=== PATIENT | female | born 1945 | race Caucasian/White ===

== ENCOUNTER 2022-01-28 09:00 | Outpatient (RCR) | payer OTHER, SELFPAY | END 2022-01-28 10:14 | disposition home or self-care (01) | LOC: HO.PT 09:00 | PROVIDERS: PCP Internal Medicine; Visit Provider Obstetrics & Gynecology | DX: R32 Unspecified urinary incontinence (principal) | CPT/HCPCS: 97110; 97112; 97162; 97530 ==

== ENCOUNTER 2025-04-15 15:06 | Outpatient (AMB) | payer OTHER, SELFPAY ==
--- NOTE | 2025-04-15 15:09 | MHC.OFFVIS ---
Intake Visit Reasons: dysuria/ urinary incontinence Intake Note: Patient is present for DYSURIA/URINARY INCONTINENCE Urology Medication:NONE Antibiotic Allergy:NONE Blood Thinner:NONE Motion Picture Equipment Supervisor Required: No Allergies No Known Allergies Allergy (Verified 04/15/25 15:10) Results AMB Urinalysis, Automated UA Leukoctes 0 Jessie/uL Last Edit by RAMÍREZ Singh on 04/15/25 15:39 UA Nitrite Negative Last Edit by Keke Hoang [facility] on 04/15/25 15:39 UA Urobilinogen 17 mg/dL Last Edit by Keke Hoang [facility] on 04/15/25 15:39 UA Protein 0.3 mg/dL Last Edit by Keke Hoang [facility] on 04/15/25 15:39 UA pH 5.5 Last Edit by Keke Hoang [facility] on 04/15/25 15:39 UA Blood 0 Grupo/uL Last Edit by Keke Hoang [facility] on 04/15/25 15:39 UA Specific Trenary 1.030 Last Edit by Keke Hoang [facility] on 04/15/25 15:39 UA Ketone Positive Last Edit by Keke Hoang [facility] on 04/15/25 15:39 UA Bilirubin 35 mg/dL Last Edit by Keke Hoang [facility] on 04/15/25 15:39 UA Glucose 0 mg/dL Last Edit by eKke Hoang [facility] on 04/15/25 15:39 Assessment & Plan Assessment & Plan (1) Mixed incontinence urge and stress: Code(s): N39.46 - Mixed incontinence Category: Medical (2) Urge incontinence: Code(s): N39.41 - Urge incontinence Category: Medical Orders: Orders AMB Urinalysis Automated Today Z13.9 - Encounter for screening, unspecified Coding Diagnoses Mixed incontinence urge and stress N39.46 Urge incontinence N39.41
== END 2025-04-15 15:53 | disposition home or self-care (01) ==
LOC: HO.HUSH 15:06
PROVIDERS: PCP Internal Medicine; Visit Provider Urology
DX: Z13.9 Encounter for screening, unspecified (principal)

== ENCOUNTER → 2025-04-15 15:06 | Outpatient (BNVA) | payer OTHER, SELFPAY | PROVIDERS: PCP Internal Medicine; Visit Provider Urology | DX: N39.46 Mixed incontinence (principal) | CPT/HCPCS: 81003 ==

== ENCOUNTER 2025-07-15 08:55 | Outpatient (AMB) | payer OTHER, SELFPAY ==
--- NOTE | 2025-07-15 09:04 | MHC.OFFVIS ---
Intake Visit Reasons: bulkamid consult Intake Note: Patient is present for bulkamid consult Urology Medication:NONE Antibiotic Allergy:NONE Blood Thinner:NONE PVR:13ml Egg Processor Required: No Allergies No Known Allergies Allergy (Verified 07/15/25 09:05) Medication List - Last Reconciled 07/15/25 by Julissa Rosa MD atorvastatin 10 mg PO DAILY estradiol 0.01%(0.1mg/gram) (Estrace) With fingertip use pea-sized amount and apply to urethra vaginally at bedtime daily; fluconazole mg PO mirabegron ER 25 mg PO DAILY 30 days ondansetron mg PO propranolol ER 60 mg PO DAILY sertraline 50 mg PO DAILY topiramate 25 mg PO BEDTIME HPI Comments Details: 07/15/25--Mari is a 80-year-old female who has been evaluated by Dr. Nieves and was started on combination VESIcare and Myrbetriq for overactive bladder symptoms. She is here for follow-up. Urinalysis negative. Bladder scan PVR 13 mL. Pelvic exam narrow introitus, no prolapse noted, small urethral caruncle and prolapse noted. Eyeball cystometrogram consistent with stress urinary incontinence leakage with Valsalva. Discussed Bulkamid urethral bulking for stress urinary incontinence/ISD. Patient has mixed urinary incontinence. Due to age will DC VESIcare and continue Myrbetriq 25 mg at bedtime. Of note the patient has a Medtronic InterStim which was placed in 2020 for fecal incontinence. She states it has not helped with her urinary symptoms. Review of Systems Const All systems reviewed & are unremarkable except as noted in HPI and below Reports no additional complaints Eyes Reports no additional complaints ENT Reports no additional complaints Card Reports no additional complaints Resp Reports no additional complaints GI Reports no additional complaints Reports as per HPI Musc Reports no additional complaints Skin/Breast Reports system reviewed and no additional complaints, except as documented Neuro Reports no additional complaints Psych Reports no additional complaints Endo Reports no additional complaints Jeff/Lymph Reports no additional complaints Aller/Immun Reports no additional complaints Office Procedures Bladder/Catheter Procedure Details: Eyeball cystometrogram-16 Algerian catheter inserted. 15 mL PVR. Total fill 240 mL, during filling 1st desire 100 mL, strong desire 100 and 80 mL. Total fill 240 mL. After Aiken catheter removed leakage noted with Valsalva. Patient voided 300 mL. [id number] of Bladder Procedure code (CPT) selection complete Office Meds nitrofurantoin monohydrate/macrocrystals 100 mg capsule Performing Provider: Julissa Rosa MD Performing Location: [facility] Administered by: China Otto RN on 07/15/25 10:27 Dose Route Admin Location Dispensed Lot Number Expiration Date NDC [employer] Worker 100 mg PO 1 cap Assessment & Plan Assessment & Plan (1) Mixed incontinence urge and stress: Code(s): N39.46 - Mixed incontinence Category: Medical (2) Urge incontinence: Code(s): N39.41 - Urge incontinence Category: Medical (3) OAB (overactive bladder): Code(s): N32.81 - Overactive bladder Category: Medical (4) CYNDI (stress urinary incontinence, female): Code(s): N39.3 - Stress incontinence (female) (male) Category: Medical Plan The patient has Medtronic InterStim pacemaker that was placed in 2020 for fecal incontinence. She states it has not helped her symptoms of urinary incontinence. Mixed incontinence with significant urge/frequency. was treated with trial maximum medication solifenacin plus Myrbetriq since age over [address] Nieves. Will continue Myrbetriq 25 mg qhs Pelvic exam-no prolapse, vaginal atrophy, urethral prolapse. Will start estrace cream. Eyeball cystometrogram today- c/w stress urinary incontinence. Leakage with Valsalva. Plan Bulkamid. Orders: Orders AMB Bladder/Catheter Procedure Today N39.41 - Urge incontinence, N39.46 - Mixed incontinence AMB Macrobid Today N39.41 - Urge incontinence, N39.46 - Mixed incontinence Medications: New estradiol 0.01%(0.1mg/gram) (Estrace) With fingertip use pea-sized amount and apply to urethra vaginally at bedtime daily; 42.5 grams 1RF Refilled mirabegron ER 25 mg PO DAILY 30 tabs 5RF 30 days N32.81 - Overactive bladder Discontinued solifenacin Discontinued Reason: Doctor's Order 10 mg PO DAILY 30 days 30 tabs 2RF N39.46 - Mixed incontinence Patient Instructions: The patient had an opportunity to ask questions regarding treatment plan. The patient expressed understanding and agreement with the above treatment plan. The patient is aware they should contact our office by phone for worsening of their current condition or the appearance of new symptoms. Compliance is encouraged with any medications and followup testing that is ordered. It is a privilege to be allowed the opportunity to participate in the urologic care of your patient. If you have any questions or concerns regarding treatment for the above conditions please do not hesitate to contact me. The office telephone contact is [phone]. This note is constructed in part using voice recognition software. While every effort has been made to ensure accuracy chronic manager errors may have been included. Yours sincerely, Julissa Rosa MD Coding Level of Care Code Est Pt Level 4 (70494) Complex EM visit Add On G2211 Diagnoses Mixed incontinence urge and stress N39.46 Urge incontinence N39.41 OAB (overactive bladder) N32.81 CYNDI (stress urinary incontinence, female) N39.3 CPT Codes Bladder/Catheter Procedure - CPT: 38449-Eysoxrgxmh of Bladder ([id number])
--- OUTSIDE RECORDS SUMMARY | 2025-07-15 09:07 | XMS_ITS ---
Author Name [facility] Organization Unknown Care Team Organization Name Specialty Phone Email Start Date End Da te [facility] 10/01/2022 4
--- OUTSIDE RECORDS SUMMARY | 2025-07-15 09:07 | XMS_ITS | Clinical Summary ---
Author Organization [facility] Address [address] [place] [address] Phone Care Team Providers Care Car Painter Name Role Phone Maya Fajardo MD Primary Care Provider [phone] Allergies Active Allergy Reactions Criticality Noted Date Comments Cephalexin Monohydrate Medium 06/15/2009 Keflex Other Reaction(s): Hives/Urticaria Clindamycin 11/25/2019 Rash diarrhea Prochlorperazine High 01/23/2006 Compazine Doesn't remember Tramadol Nausea And Vomiting 01/31/2018 Medications loperamide (IMODIUM) 2 mg capsule 12/29/2023 Active multivitamin (MULTIPLE VITAMINS ORAL) 1 tab qd Activ e nitroglycerin (NITROSTAT) 0.[address] ONE TABLET UNDER THE TONGUE NEEDED FOR CHEST PAIN, MAY REPEAT ONE TIME 25 tablet 03/22/2025 Active propranolol LA (INDERAL LA) 60 mg 24 hr capsule Take 1 capsule (60 mg total) by mouth 1 (one) time each day. 90 capsule 06/14/2025 Active topiramate (TOPAMAX) 25 mg tablet Take 1 tablet (25 mg total) by mouth at bedtime. 90 tablet 06/14/2025 Active atorvastatin (LIPITOR) 10 mg tablet Take 1 tablet (10 mg total) by mouth at bedtime. 90 tablet 06/14/2025 Active sertraline (ZOLOFT) 50 mg tablet Take 1 tablet (50 mg total) by mouth 1 (one) time each day in the morning. 90 tablet 06/14/2025 Active mirabegron (MYRBETRIQ) 25 mg 24 hr tablet Take 1 tablet (25 mg total) by mouth 1 (one) time each day. 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 Shingles 06/04/2008 Urinary incontinence 03/03/2007 B12 deficiency 03/03/2006 Depression 03/03/2006 Migraine 03/03/2006 Resolved Problems Problem Noted Date Diagnosed Date Resolved Date Other voice and resonance disorders 03/03/2006 04/11/2025 Overview (10/19/2024): Work up negative Encounters Date Type Department Care Team Description 05/13/2025 2:04 PM EDT - 05/13/2025 11:59 PM EDT [facility] [address] [place] [phone] Rib pain Discharge Disposition: Home or Self Care 05/13/2025 2:00 PM EDT Office Visit [facility] - [facility] [address] [place] [phone] Nasir Reyna, PHLEBOTOMY SUPERVISOR Rib pain (Primary Dx) from Last 3 Months Immunizations Name Administration Dates Next Due H1N1 Inj Preservative Free 12/15/2009 Influenza trivalent, 0.5mL ( Fluad) 65yo and older 08/16/2024,08/24/2023,09/09/2022,09/05,08/09/2020,09/13/2018,07/31/2017 ,08/15/2016 Influenza trivalent, 0.5mL, preservative free (Fluarix; FluLaval; Fluzone) ages 6mo and older (Afluria) 3 years and older 08/07/2021,09/25/2020,08/26/2018,08/27,09/04/2015,09/07/2014,09/06/2013 ,08/10/2012,09/19/2011,08/16/2010,07/25,09/08/2008,09/10/2007, 5 Influenza trivalent, with pr eservative (Fluzone; Afluria) 6mo and older 09/11/2022,08/30/2019 Moderna SARS-CoV-2 COVID-19, mRNA, LNP-S, preservative free 07/09/2021 Pneumococcal conjugate 13 va lent (Prevnar 13, PCV13) 2mo and older 03/23/2015 Pneumococcal polysaccharide 23 valent (Pneumovax 23) 2yo and older 10/14/2012 RSV, bivalent, protein subun it RSVpreF, 0.5mL, Preservative Free (ABRYSVO) 60yo and older or 32 through 36 wks of 02/19/2024 Td Tetanus diptheria (Tdvax) 7yo and older 12/29/2001 Td, Unspecified 12/29/2001 Tdap Tetanus diptheria acell ular pertussis (Boostrix; Adacel) 7yo and older 03/05/2022,09/18/2021,05/22/2011 Zoster recombinant (Shingrix ) 19yo and older 09/05/2020,06/07/2020 Surgical History Surgery Date Site/Laterality Comments BREAST LUMPECTOMY Benign TONSILLECTOMY FOOT SURGERY Bone spurs COLONOSCOPY 07/27/2008 diverticulosis FLEXIBLE SIGMOIDOSCOPY 12/2002 Normal COLONOSCOPY 09/04/2018 3 cm rectal polyp and 7 mm ascending colon polyp: Rectal polyp = tubulovillous adenoma; ascending colon polyp = tubular adenoma. COLONOSCOPY 11/2018 piecemeal removal of 3cm tubulovillous polyp at rectum COLONOSCOPY 10/11/2019 : large polyp at the rectosigmoid; referred to colorectal surgery at [facility]. Medical History Medical History Date Comments Depressive disorder, not els ewhere classified Diverticulosis of colon (wit hout mention of hemorrhage) 07/27/2008 Incidental finding at colono scopy 07/27/2008. Tubulovillous adenoma polyp of rectum IBS (irritable bowel syndrome) Sacral nerve stimulator present 06/03/2022 Vitamin D deficiency 09/23/2022 B12 deficiency 03/03/2006 Osteoporosis 03/23/201514 T score spi ne -1.8 hip -2.8 03/09 T score spine -2.1 hip -2.4 09/14 T score spine -1.4 hip -2.4 Depression 03/03/2006 Family History Medical History Relation Name Comments Macular degeneration Father CABG Stroke Maternal Grandfather Stroke Maternal Grandmother Hodgkin's lymphoma Mother Breast cancer Other m cousin 50s Cirrhosis Paternal Grandfather alcohol abuse Other: traumatic brain injury Son Relation Name Status Comments Father (Age 92) Maternal Grandfather Maternal Grandmother Mother (Age 78) Other m cousin 50s Alive Paternal Grandfather Paternal Grandmother Blindne ss Son Social History Tobacco Use Types Packs/Day Years Used Date Smoking Tobacco: Never Smokeless Tobacco: Never Tobacco Cessation:Counseling Given: Not Answered Alcohol Use Standard Drinks/Week Comments Yes 0 (1 standard drink = 0.6 oz pur e alcohol) Housing Instability Answer Date Recorde d Are you worried that in the next 2 months you may not have stable housing? No 10/20/2024 Food Access & Nutrition Answer Date Rec orded Do you have access to a vari ety of food including fruits and vegetables? Yes 10/20/2024 Health Literacy Answer Date Recorded How often do you need to hav e someone help you when you read instructions, pamphlets, or other written material from your doctor or pharmacy? Never 10/20/2024 Caregiver: How often do you need to have someone help you when you read instructions, pamphlets, or other written material from your doctor or pharmacy? Not on file 10/20/2024 Financial Risk Answer Date Recorded How hard is it for you to pa y for the very basics like food, housing, medical care, and air conditioning / heating? Not very hard 10/20/2024 Transportation Answer Date Recorded Has the lack of transportati on kept you from meetings, work, or from getting things needed for daily living? No Has the lack of transportati on kept you from medical appointments or from getting medications? No 10/20/2024 Social Isolation Answer Date Recorded How often do you feel lonely or isolated from th ose around you? Never 10/20/2024 Food Risk Answer Date Recorded Within the past 12 months we worried whether our food would run out before we got money to buy more. Never true 10/20/2024 Within the past 12 months th e food we bought just didn't last and we didn't have money to get more. Never true 10/20/2024 Dependent Care Answer Date Recorded Do you need help finding or paying for care for your loved ones. For example, child care leader or elderly care for an older adult? No 10/20/2024 Education Answer Date Recorded Do you think completing more education or training, like finishing a GED, going to college, or learning a trade, would be helpful for you? No 10/20/2024 Employment and Income Answer Date Recor ded During the last four weeks, have you been actively looking for work? No 10/20/2024 Living Situation Answer Date Recorded What is your living situation? 1 12/20/2023 Comments No Sex and Gender Information Value Date Recorded Sex Assigned at Not on file Legal Sex Female 3:22 AM EST Gender Identity Not on file Sexual Orientation Not on file Obstetrics History Para Term AB IAB SAB Ectopic Multiple Livin g Live Births 3 Last Filed Vital Signs Vital Sign Reading Time Taken Comments Blood Pressure 123/84 05/13/2025 1:50 PM EDT Pulse 83 05/13/2025 1:50 PM EDT Temperature 36.3 C (97.3 F) 05/13/2025 1:50 PM EDT Respiratory Rate 16 04/11/2025 9:46 AM EDT Oxygen Saturation 96% 05/13/2025 1:50 PM EDT Inhaled Oxygen Concentration - - Weight 64.5 kg (142 lb 4.8 oz) 04/11/2025 9:46 A M EDT Height 160 cm (5' 3 ) 04/11/2025 9:46 AM EDT Body Mass Index 25.21 04/11/2025 9:46 AM EDT Plan of Treatment Upcoming Encounters Date Type Department Care Team (Late st Contact Info) Description 10/12/2025 9:30 AM EST Office Visit Adult Medicine [facility] [address] [place] [address] Laly Brown PA [address] [place] [address] 01/11/2026 10:00 AM EST [facility]ointment [facility] [address] [phone] Health Maintenance Due Date Last Done Comments COVID-19 Vaccine ( season) 2024 09/11/2023, 04/14/2022, 10/31/2021, Additional history exists Depression Screening 11/24/2024 10/20/2024 Influenza Vaccine (#1) 2025 , 08/24/2023, 09/11/2022, Additional history exists Falls Risk Assessment 10/20/2025 10/20/2024, 024 Social Influencers of Health Screening 10/20/2025 10/20/2024 Cholesterol Screening (Lipid Panel) 08/31/2029 08/31/2024, 08/31/2024 DTaP,Tdap,and Td Vaccines (6 - Td or Tdap) 03/05/2032 03/05/2022, 09/18/2021, 05/22/2011, Additional history exists Osteoporosis Screening (Bone Density Screening) 09/11/2032 09/11/2022, 11/30/2018 Hepatitis C Screening Completed 03/08/2014 Pneumococcal Vaccine: 50+ Years Completed 03/23/2015, 10/14/2012 Colorectal Cancer Screening: Colonoscopy Discontinued 11/25/2019 Zoster Vaccines Completed 09/05/2020, 06/07/2020 RSV Immunization Adult Patients Completed 02/19/2024 HIB Vaccines Aged Out No longer eligi ble based on patient's age to complete this topic HPV Vaccines Aged Out No longer eligi ble based on patient's age to complete this topic Hepatitis A Vaccines Aged Out No long er eligible based on patient's age to complete this topic Hepatitis B Vaccines Aged Out No long er eligible based on patient's age to complete this topic IPV Vaccines Aged Out No longer eligi ble based on patient's age to complete this topic MMR Vaccines Aged Out No longer eligi ble based on patient's age to complete this topic Meningococcal ACWY Vaccine Aged Out N o longer eligible based on patient's age to complete this topic Meningococcal B Vaccine Aged Out No l onger eligible based on patient's age to complete this topic RSV Immunization Patients Under 20 months Aged Out No longer eligible based on patient's age to complete this topic Varicella Vaccines Aged Out No longer eligible based on patient's age to complete this topic Procedures Procedure Name Priority Date/Time Associated Diagnosis Comments XR RIBS W CHEST 3+ VIEWS LEFT STAT 05/13/2025 2:20 PM EDT Rib pain LIPID PANEL Routine 08/31/2024 DXA BONE DENSITY STUDY 1+ SITS AXIAL SKEL Routine 09/11/2022 9:42 AM EDT Age-related osteoporosis without current pathological fracture HEPATITIS C SCREENING Routine 03/08/2014 from Last 3 Months or Most Recently Relevant to Health Maintenance Results * XR Ribs w Chest 3+ Views Left (05/13/2025 2:20 PM EDT) Anatomical Region Laterality Modality Body Left Radiographic Adilia ging 05/13/2025 2:26 PM EDT Impressions 05/13/2025 2:29 PM EDT No acute pulmonary pathology. No visualized rib fractures. Stable mild cardiomegaly. -------- FINAL REPORT -------- Dictated By: Maryjo Swenson Dictated Date: 05/13/2025 14:26 ET Assigned Physician: Maryjo Swenson Reviewed and Electronically Signed By: Maryjo Swenson Signed Date: 05/13/2025 14:29 ET Workstation ID: [id number] Transcribed By: Self Edit Transcribed Date: 05/13/2025 14:26 ET Narrative 05/13/2025 2:29 PM EDT CHEST, FRONTAL VIEW LEFT RIBS, 2 VIEWS HISTORY: Fall with pain mid axillary multiple ribs. Prior study: Chest x-ray 12/24/2018. FINDINGS: The lungs are clear. No pleural effusion is seen. No pneumothorax is seen. The cardiac diameter remains mildly enlarged. No acute or aggressive appearing bony abnormalities are seen. There is curvature and degenerative change of the spine. Oblique views of the left ribs demonstrate no displaced fractures. Procedure Note Maryjo Swenson MD - 05/13/2025 CHEST, FRONTAL VIEW LEFT RIBS, 2 VIEWS HISTORY: Fall with pain mid axillary multiple ribs. Prior study: Chest x-ray 12/24/2018. FINDINGS: The lungs are clear. No pleural effusion is seen. No pneumothorax is seen. The cardiac diameter remains mildly enlarged. No acute or aggressive appearing bony abnormalities are seen. There iscurvature and degenerative change of the spine. Oblique views of the left ribs demonstrate no displaced fractures. IMPRESSION: No acute pulmonary pathology. No visualized rib fractures. Stable mild cardiomegaly. -------- FINAL REPORT -------- Dictated By: Maryjo Swenson Dictated Date: 05/13/2025 14:26 ET Assigned Physician: Maryjo Swenson Reviewed and Electronically Signed By: Maryjo Swenson Signed Date: 05/13/2025 14:29 ET Workstation ID: [id number] Transcribed By: Self Edit Transcribed Date: 05/13/2025 14:26 ET us Nasir Reyna NP IMG XR PROCEDURES Final Resul t * Lipid panel (08/31/2024) LDL/HDL Ratio 2 0 - 4 Triglycerides 43 0 - 150 mg/dL Cholesterol 139 0 - 200 mg/dL HDL 73 >=40 mg/dL LDL Cholesterol 58 0 - 100 mg/dL Blood Venous blood specimen / Unknown us Historical Provider LAB BLOOD ORDERABLES Estrella l Result * DXA BONE DENSITY STUDY 1+ SITS AXIAL SKEL (09/11/2022 9:42 AM EDT) Anatomical Region Laterality Modality Bone Densitometr y 03/05/2022 9:18 AM EDT Narrative 09/12/2022 12:30 PM EDT BONE DENSITY Lumbar Spine T-score is -1.4 (SD relative to 20-29 y/o adult) Z-score is +1.1 (SD relative to age matched peers) This is consistent with osteopenia by criteria defined by the WHO. Left Hip T-score is -2.4 Z-score is -0.3 This is consistent with osteopenia by criteria defined by the WHO. Comparison exam(s): significant decrease in bone density of hip when compared to most recent bone density examination Confidence level is +/-95%. Impression: Based on the World Health Organization criteria, Geri Caballero should be classified as having osteopenia. This patient is already being treated for osteoporosis. The [facility] Department of Internal Medicine recommends using National Osteoporosis Foundation (NOF) guidelines in treatment decisions related to osteoporosis. NOF guidelines suggest considering treatment for postmenopausal women and men aged 50 or older presenting with the following: History of hip or vertebral fracture. T-score less than or equal to -2.5 (DXA) at the femoral neck, total hip, or spine, after appropriate evaluation to exclude secondary causes. Low bone mass (T-score between -1.0 and -2.5 at the femoral neck or spine) AND a 10-year probability of a hip fracture greater than or equal to 3% OR a 10-year probability of a major osteoporosis-related fracture greater than or equal to 20% based on the [place]-adapted WHO algorithm Please note that all treatment decisions require clinical judgment and consideration of individual patient factors, including patient preferences, co-morbidities, previous drug use, risk factors not captured in the FRAX model (e.g., frailty, falls, vitamin D deficiency, increased bone turnover, interval significant decline in bone density) and possible under- or over-estimation of fracture risk by FRAX. Procedure Note Phoenix Romano MD - 11/12/2022 BONE DENSITY Lumbar Spine T-score is -1.4 (SD relative to 20-29 y/o adult) Z-score is +1.1 (SD relative to age matched peers) This is consistent with osteopenia by criteria defined by the WHO. Left Hip T-score is -2.4 Z-score is -0.3 This is consistent with osteopenia by criteria defined by the WHO. Comparison exam(s): significant decrease in bone density of hip whencompared to most recent bone density examination Confidence level is +/-95%. Impression: Based on the World Health Organization criteria, Geri Caballero should beclassified as having osteopenia. This patient is already being treated forosteoporosis. The [facility] Department of Internal Medicine recommendsusing National Osteoporosis Foundation (NOF) guidelines in treatmentdecisions related to osteoporosis. NOF guidelines suggest consideringtreatment for postmenopausal women and men aged 50 or older presentingwith the following: History of hip or vertebral fracture. T-score less than or equal to -2.5 (DXA) at the femoral neck, total hip,or spine, after appropriate evaluation to exclude secondary causes. Low bone mass (T-score between -1.0 and -2.5 at the femoral neck or spine)AND a 10-year probability of a hip fracture greater than or equal to 3% ORa 10-year probability of a major osteoporosis-related fracture greaterthan or equal to 20% based on the [place]-adapted WHO algorithm Please note that all treatment decisions require clinical judgment andconsideration of individual patient factors, including patientpreferences, co-morbidities, previous drug use, risk factors not capturedin the FRAX model (e.g., frailty, falls, vitamin D deficiency, increasedbone turnover, interval significant decline in bone density) and possibleunder- or over-estimation of fracture risk by FRAX. Maya Fajardo MD [facility] – [place] DXA PROCEDURES Final Result * Hepatitis C Screening (03/08/2014) [facility] Hepatitis C Screening Abstracted Emily Provider HEALTH MAINTENANCE Final Result from Last 3 Months or Most Recently Relevant to Health Maintenance Insurance [facility] Care Teams Car Painter Relationship Specialty Start Date End Date Maya Fajardo MD [address] [place] [id number] PCP - General Internal Medicine 12/26/15
== END 2025-07-15 10:33 | disposition home or self-care (01) ==
LOC: HO.HUSH 08:56
PROVIDERS: PCP Internal Medicine; Visit Provider Urology
DX: N39.46 Mixed incontinence (principal); N32.81 Overactive bladder; Z13.9 Encounter for screening, unspecified
CPT/HCPCS: 51700; 99214; G2211

== ENCOUNTER → 2025-07-15 08:55 | Outpatient (BNVA) | payer OTHER, SELFPAY | PROVIDERS: PCP Internal Medicine; Visit Provider Urology | DX: N39.46 Mixed incontinence (principal) | CPT/HCPCS: 51700; 81003 ==

== ENCOUNTER 2025-10-25 08:22 | Day surgery (SDC) | payer OTHER, SELFPAY ==
--- OUTSIDE RECORDS SUMMARY | 2025-10-13 07:51 | XMS_ITS | Encounter Summary ---
Author Organization [facility] Address [address] [place] [address] Care Team Providers Care Garden Consultant Name Role Phone Maya Fajardo MD Primary Care Provider [phone] Reason for Referral * Imaging (Routine) - Closed Specialty Diagnoses / Procedures Referred By Contac t Referred To Contact Radiology Diagnoses Other specified menopausal and perimenopausal disorders Procedures BD Bone Density DXA Axial Skeleton Mojgan Kapadia MD [address] [place] [phone] Phone: tel: fax: [address] [address] Phone: tel: Referral ID Status Reason Start Date Expiration Date Visits Re quested Visits Authorized [id number] Closed 08/08/2025 08/08/2026 1 1 Reason for Visit * Imaging (Routine) - Closed Specialty Diagnoses / Procedures Referred By Contac t Referred To Contact Radiology Diagnoses Other specified menopausal and perimenopausal disorders Procedures BD Bone Density DXA Axial Skeleton Mojgan Kapadia MD [address] [place] [address] Phone: tel: fax: [address] [phone] Phone: tel: Referral ID Status Reason Start Date Expiration Date Visits Re quested Visits Authorized [id number] Closed 08/08/2025 08/08/2026 1 1 Encounter Details Date Type Department Care Team (Latest Contact Info) Description 10/13/2025 7:51 AM EST - 10/13/2025 11:59 PM EST Hospital Encounter [facility] Bone Density [address] [place] [address] Other specified menopausal and perimenopausal disorders Discharge Disposition: Home or Self Care Social History Tobacco Use Types Packs/Day Years Used Date Smoking Tobacco: Never Smokeless Tobacco: Never Alcohol Use Standard Drinks/Week Comments Yes 0 [...] for your loved ones. For example, child study team director or elderly care for an older adult? [...] Date Recorded What is your living situation? Unrecognized valu e 10/20/2024 Comments No Sex and Gender Information Value Date Recorded Sex Assigned at Not on file Legal Sex Female 3:22 AM EST Gender Identity Not on file Sexual Orientation Not on file documented as of this encounter Medications at Time of Discharge loperamide (IMODIUM) 2 mg capsule 12/29/2023 multivitamin (MULTIPLE VITAMINS ORAL) 1 tab qd nitroglycerin (NITROSTAT) 0.[address] ONE TABLET UNDER THE TONGUE NEEDED FOR CHEST PAIN, MAY REPEAT ONE TIME 25 tablet 03/22/2025 atorvastatin (LIPITOR) 10 mg tablet TAKE ONE TABLET BY MOUTH DAILY AT BEDTIME 90 tablet 09/21/2025 mirabegron (MYRBETRIQ) 25 mg 24 hr tablet Take 1 tablet (25 mg total) by mouth 1 (one) time each day. 05/11/2025 propranolol LA (INDERAL LA) 60 mg 24 hr capsule TAKE ONE CAPSULE BY MOUTH EVERY DAY 90 capsule 09/21/2025 sertraline (ZOLOFT) 50 mg tablet TAKE ONE TABLET BY MOUTH EVERY MORNING 90 tablet 09/21/2025 topiramate (TOPAMAX) 25 mg tablet TAKE ONE TABLET BY MOUTH DAILY AT BEDTIME 90 tablet 09/21/2025 documented as of this encounter Discharge Disposition Disposition Code Departure Means Destination Home or Self Care documented in this encounter Plan of Treatment Upcoming Encounters Date Type Department Care Team (Late st Contact Info) Description 01/11/2026 10:00 AM EST Appointment [facility] at [address] [phone] documented as of this encounter Procedures Procedure Name Priority Date/Time Associated Diagnosis Comments BD BONE DENSITY DXA AXIAL SKELETON Routine 10/13/2025 8:34 AM EST Other specified menopausal and perimenopausal disorders documented in this encounter Results * BD Bone Density DXA Axial Skeleton (10/13/2025 8:34 AM EST) Anatomical Region Laterality Modality Wrist, Hip, L-spine Bone Densito metry 10/13/2025 8:48 AM EST Impressions 10/13/2025 8:56 AM EST 1. Osteoporosis. 2. FRAX analysis yields a 10-year probability of major osteoporotic fracture of 16.3% and a 10-year probability of hip fracture of 5.0%. Code 11802 -------- FINAL REPORT -------- Dictated By: Nasir Way Dictated Date: 10/13/2025 08:48 ET Assigned Physician: Nasir Way Reviewed and Electronically Signed By: Nasir Way Signed Date: 10/13/2025 08:56 ET Workstation ID: [id number] Transcribed By: Self Edit Transcribed Date: 10/13/2025 08:48 ET Narrative 10/13/2025 8:56 AM EST HISTORY: The patient is a 80-year-old postmenopausal female with clinical concern for metabolic bone disease. FINDINGS: Dual energy x-ray absorptiometry of the lumbar spine and femurs is performed. The mean bone mineral density at L1-2 is 0.868 gm/cm2 which is 75% of that of young normals and 93% of that of age matched controls. This yields a T-score of -2.5 and a Z-score of -0.6 which is diagnostic of osteoporosis. The mean bone mineral density of the femurs bilaterally is 0.803 gm/cm2 which is 80% of that of young normals and 106% of that of age matched controls. This yields a T-score of -1.6 and a Z-score of 0.4 which is diagnostic of osteopenia. Procedure Note Nasir Way MD - 10/13/2025 HISTORY: The patient is a 80-year-old postmenopausal female with clinicalconcern for metabolic bone disease. FINDINGS: Dual energy x-ray absorptiometry of the lumbar spine and femursis performed. The mean bone mineral density at L1-2 is 0.868 gm/cm2 whichis 75% of that of young normals and 93% of that of age matched controls.This yields a T-score of -2.5 and a Z-score of -0.6 which is diagnostic ofosteoporosis. The mean bone mineral density of the femurs bilaterally is 0.803 gm/go6sxlqv is 80% of that of young normals and 106% of that of age matchedcontrols. This yields a T-score of -1.6 and a Z-score of 0.4 which isdiagnostic of osteopenia. IMPRESSION: 1. Osteoporosis. 2. FRAX analysis yields a 10-year probability of major osteoporoticfracture of 16.3% and a 10-year probability of hip fracture of 5.0%. Code 10731 -------- FINAL REPORT -------- Dictated By: Nasir Way Dictated Date: 10/13/2025 08:48 ET Assigned Physician: Nasir Way Reviewed and Electronically Signed By: Nasir Way Signed Date: 10/13/2025 08:56 ET Workstation ID: [id number] Transcribed By: Self Edit Transcribed Date: 10/13/2025 08:48 ET Mojgan Kapadia MD IMG DXA PROCEDURES Final Res ult documented in this encounter Visit Diagnoses Diagnosis Other specified menopausal and perimenopausal disorders Encounter for screening mammogram for breast cancer documented in this encounter Additional Health Concerns Assessment Noted Time PHQ-9 Depression Total Score: 1 10/20/20 24 10:40 AM EST A fall risk assessment has been complete d for the patient 10/20/2024 10:41 AM EST documented as of this encounter Care Teams Garden Consultant Relationship Specialty Start Date End Date Maya Fajardo MD [address] [place] [phone] PCP - General Internal Medicine 12/26/15 documented as of this encounter
--- NOTE | 2025-10-19 10:58 | HO.ANESPROP2 ---
Documented by User: Mihaela Gentile NP 10/19/25 10:59 HPI - Anesthesia Eval Consult details Narrative: 80 yr old female for Cystoscopy with Bulkamid PMFSH Active Problems Active Problems: All Active Problems (Updated 07/15/25 @ 10:34 by Julissa Rosa MD) CYNDI (stress urinary incontinence, female) (Acute) OAB (overactive bladder) (Acute) Mixed incontinence urge and stress (Acute) Urge incontinence (Acute) Past Medical History Medical History Cataract Surgery, elective Arthritis Osteoporosis Migraine History of headache Depression Elevated cholesterol Social History Social History Patient Tobacco Use Status: Never used Tobacco Have you been hit, kicked, punched, or otherwise hurt by someone within the past year? If so, by whom?: No Are you DNR?: No Advance Directives: No Advance Directives Information Provided: Yes Meds Allergies Allergy/AdvReac Type Severity Reaction Status Date / Time cephalexin AdvReac Mild Diarrhea Verified 10/25/25 09:24 clindamycin AdvReac Mild Diarrhea Verified 10/25/25 09:24 prochlorperazine (From AdvReac Mild Diarrhea Verified 10/25/25 09:24 Compazine) tramadol AdvReac Mild Hives Verified 10/25/25 09:24 Home Medications ?Medication ?Instructions ?Recorded ?Confirmed ?Last Taken ?Type atorvastatin 10 mg tablet 10 mg PO DAILY 04/15/25 10/25/25 Unknown History fluconazole 150 mg tablet 150 mg PO BID 04/15/25 10/25/25 Unknown History ondansetron 4 mg disintegrating 4 mg PO QID PRN Nausea And Vomiting 04/15/25 10/25/25 Unknown History tablet propranolol 60 mg capsule,24 60 mg PO DAILY 04/15/25 10/25/25 Unknown History hr,extended release sertraline 50 mg tablet 50 mg PO DAILY 04/15/25 10/25/25 Unknown History topiramate 25 mg tablet 25 mg PO BEDTIME 04/15/25 10/25/25 Unknown History Documented by User: Mo Sapp MD 10/25/25 09:38 [facility] Past Medical History Medical History Cataract Surgery, elective Arthritis Osteoporosis Migraine History of headache Depression Elevated cholesterol Functional capacity: independent ambulation Family History Family history of problems with anesthesia: No Surgical History History of Problems with Anesthesia: No Social History Social History Patient Tobacco Use Status: Never used Tobacco Have you been hit, kicked, punched, or otherwise hurt by someone within the past year? If so, by whom?: No Are you DNR?: No Advance Directives: No Advance Directives Information Provided: Yes Meds Allergies Allergy/AdvReac Type Severity Reaction Status Date / Time cephalexin AdvReac Mild Diarrhea Verified 10/25/25 09:24 clindamycin AdvReac Mild Diarrhea Verified 10/25/25 09:24 prochlorperazine (From AdvReac Mild Diarrhea Verified 10/25/25 09:24 Compazine) tramadol AdvReac Mild Hives Verified 10/25/25 09:24 Home Medications ?Medication ?Instructions ?Recorded ?Confirmed ?Last Taken ?Type atorvastatin 10 mg tablet 10 mg PO DAILY 04/15/25 10/25/25 Unknown History fluconazole 150 mg tablet 150 mg PO BID 04/15/25 10/25/25 Unknown History ondansetron 4 mg disintegrating 4 mg PO QID PRN Nausea And Vomiting 04/15/25 10/25/25 Unknown History tablet propranolol 60 mg capsule,24 60 mg PO DAILY 04/15/25 10/25/25 Unknown History hr,extended release sertraline 50 mg tablet 50 mg PO DAILY 04/15/25 10/25/25 Unknown History topiramate 25 mg tablet 25 mg PO BEDTIME 04/15/25 10/25/25 Unknown History Exam Exam Date and Time: 10/25/2035 Airway Heart: normal Lungs: normal Other: normal Assessment and Plan Assessment Anesthesia Assessment: Anesthesia Plan Discussed and Chart Reviewed Final Anesthetic Review Family History of Problems with Anesthesia: No History of Problems with Anesthesia: No NPO: Yes ASA Class: II Final Preanesthetic Review: No Changes in Pt Med Stat, Meds/Allgs Chart Reviewed, Consent Obtained/Reviewed and Anes Risks/Benef Reviewed Patient Risk: Intermediate Procedure Risk: Low Anesthetic Plan Anesthetic Plan: GA Disposition: Standard PACU
--- OUTSIDE RECORDS SUMMARY | 2025-10-19 12:05 | XMS_ITS | Data Portability ---
Author Organization [place] - [facility],, MOJGAN KAPADIA MD Address [address] [address] Care Team Providers Care It Recruiter Name Role Phone AUSTYN JARAMILLO Primary Care Provider Assessment No assessment recorded. Plan of Treatment Reminders Order Date Submit Date Provider Last Modified By Organization Details Last Modified Time Details Appointments Consult 2024 11:00A M Mojgan Kapadia MD Not available Not available Not available Lab cytology report, thin prep, smear or scraping, cervical or vaginal 2024 025 RIGOBERTO [facility] (Centralized Electronic Ordering - All Locations), Patient Can Go To The Location Of Their Choice, [id number] 08/10/2025 12:16:09 culture, urine 2023 024 RIGOBERTO [facility] (Centralized Electronic Ordering - All Locations), Patient Can Go To The Location Of Their Choice, [id number] 08/06/2024 00:05:23 urinalysi s, dipstick, auto 2023 024 [email or web address] 1 In-Office Order, Internal Use Only DO Not Attach Compendium DO Not Attach Compendium, Do Not Delete/merge, [id number] 08/04/2024 10:40:41 cytology report, thin prep, smear or scraping, cervical or vaginal 2023 024 RIGOBERTO [facility] (Centralized Electronic Ordering - All Locations), Patient Can Go To The Location Of Their Choice, [id number] 08/08/2024 16:05:44 hemoglobi n, gastroint estinal, stool 2023 024 [email or web address] 1 In-Office Order, Internal Use Only DO Not Attach Compendium DO Not Attach Compendium, Do Not Delete/merge, [id number] 08/04/2024 10:32:09 wet mount, vaginal 2023 024 [email or web address] 1 In-Office Order, Internal Use Only DO Not Attach Compendium DO Not Attach Compendium, Do Not Delete/merge, [id number] 06/30/2024 10:25:26 pap test, thinprep, cervical 2022 [facility] - [facility]), Patient Can Go To The Location Of Their Choice, [id number] 07/11/2023 07:38:37 wet mount, vaginal 2022 023 [email or web address] 1 In-Office Order, Internal Use Only DO Not Attach Compendium DO Not Attach Compendium, Do Not Delete/merge, [id number] 06/02/2023 13:17:38 Referral None recorded. Procedures None recorded. Surgeries None recorded. Imaging MAMMO, screening , digital, bilateral - Breast Aspiratio n and/or Biopsy if needed 2024 025 [facility] (Mammography) , [address] [place] [address], [id number], 08/08/2025 14:10:46 bone density 2024 025 [facility] (Mammography) , [address] [place], [address], 10/13/2025 09:06:30 MAMMO, screening , digital, bilateral - Breast Aspiratio n and/or Biopsy if needed 2023 024 [facility] (Mammography) , [address] [place], [address], 08/01/2025 07:18:44 MAMMO, screening , digital, bilateral - Breast Aspiratio n and/or Biopsy if needed 2022 023 [facility] (Mammography) , [address] [place], [address], 06/28/2024 07:47:32 bone density 2022 023 [facility] (Mammography) , [address] [place], [address], 06/28/2024 07:47:32 Medication Orders nystatin 100,000 unit/gram topical powder 2024 025 [facility], [address] [place] [address], [id number], 08/08/2025 14:02:23 fluconazo le 150 mg tablet 2023 024 [facility], [address] [place] [address], [id number], 08/08/2025 13:41:45 fluconazo le 150 mg tablet 2023 024 [facility], [address] [place] [address], [id number], 08/08/2025 13:41:45 fluconazo le 150 mg tablet 2022 023 [facility], [address] [place] [address], [id number], 08/08/2025 13:41:45 Patient TargetsNo targets recorded. Patient Instructions Encounter Date Encounter Id Patient Instructions Last Modified By Organization Details Last Modified Time 06/02/2023 [id number] vaginal yeast infection: care instructions Not available 06/02/2023 13:15:18 She is here for a two day history of vaginal burning and pruritus. she just finished an rx for amoxicillin from the dentist, she had two teeth pulled. raghavendra has symptomatic monilia vaginitis, rx diflucan given, call if symptoms persist or recur. Not available 06/02/2023 13:18:29 07/04/2023 [id number] atrophic vaginitis: care instructions Not available 07/04/2023 10:37:21 learning about healthy weight Not available 07/04/2023 10:37:21 She is here for annual exam, is doing well. She appears to be doing well. Monthly self breast exam was taught, and stressed, and is advised to call if she discovers any new mass in the breast. Not available 07/04/2023 10:37:19 06/30/2024 [id number] vaginal yeast infection: care instructions Not available 06/30/2024 10:13:33 She is here for a one week history of worsening vaginal pruritis and vulvar burning. She is taking doxycycline for a breast infection. She has a symptomatic vaginal yeast infection. She is advised to use desitin on the skin for comfort and protection. Rx diflucan now and in a week. Call if no improvement. Not available 06/30/2024 10:28:09 08/04/2024 [id number] painful urinatio n (dysuria): care instructions Not available 08/04/2024 10:40:41 learning about healthy weight Not available 08/04/2024 10:32:09 vaginal yeast infection: care instructions Not available 08/04/2024 10:32:48 She is here for annual exam, is doing well but has some dysuria for the past week. She has white, clumping vaginal discharge, rx diflucan for symptomatic monilia. Also she has a diaper rash in the introitus due to chronic wetness, some skin missing, advised to use the Desitin inside the introitus as well. Urine dip done for dysuria, has some blood, check urine culture. The blood may be from the diaper rash of the introitus. She appears to be doing well. Monthly self breast exam was taught, and stressed, and is advised to call if she discovers any new mass in the breast. Not available 08/04/2024 10:41:27 08/08/2025 [id number] Stress Incontinence: Care Instructions Not available 08/08/2025 14:03:33 atrophic vaginitis: care instructions Not available 08/08/2025 13:49:10 learning about healthy weight Not available 08/08/2025 13:49:10 She is here or annual, doing well. Note from 2023: She is here for annual exam, is doing well but has some dysuria for the past week. She has white, clumping vaginal discharge, rx diflucan for symptomatic monilia. Also she has a diaper rash in the introitus due to chronic wetness, some skin missing, advised to use the Desitin inside the introitus as well. Urine dip done for dysuria, has some blood, check urine culture. The blood may be from the diaper rash of the introitus. She appears to be doing well. Has osteoporosis, bone density ordered. She saw the hadoop engineer urologist and has a periurethral procedure scheduled for later this year, and they started her on estradiol vaginal cream. Monthly self breast exam was taught, and stressed, and is advised to call if she discovers any new mass in the breast. Not available 08/08/2025 14:03:50 Reason for Referral None Reported. Results Created Date Observation Date Name Description Value Unit Range Abnormal Flag Note LastModifiedBy Organization Detail LastModifiedTime 06/02/2006/02/2023 wet mount carlotta Clue Cells negati ve Not Available In-Office Order Internal Use Only DO Not Attach Compendium DO Not Attach Compendium, Do Not Delete/merge, 06/02/2023 13:15:06/02/2006/02/2023 wet mount carlotta Trichomonas negati ve Not Available In-Office Order Internal Use Only DO Not Attach Compendium DO Not Attach Compendium, Do Not Delete/merge, 06/02/2023 13:15:06/02/2006/02/2023 wet mount carlotta Hyphae positi ve Not Available In-Office Order Internal Use Only DO Not Attach Compendium DO Not Attach Compendium, Do Not Delete/merge, 06/02/2023 13:15:06/02/2006/02/2023 wet mount , vagin al atrophic epithelium positi ve Not Available In-Office Order Internal Use Only DO Not Attach Compendium DO Not Attach Compendium, Do Not Delete/merge, [id number] 06/02/2023 13:15:03 07/04/2007/04/2023 [facility] CYTOL OGY results Patie nt Name: BURAK HEATON : 1944 (Age: 78) Lab Acces pilar #: [id number] Colle ction Date: 2022 Acces pilar Date: 2022 Sign Out Date: 2022 Tissu e Sourc e: 1: THINP REP CHAIRPERSON ANESTHESIOLOGY PAP TEST, CERVI DIEGO: Final Diagn osis: NEGAT AL FOR INTRA EPITH ELIAL LESIO N OR MALIG DENI . Satis facto ry for evalu ation . Endoc ervic al/tr ansfo rmati on zone prese nt. Clini diego Histo ry: Date of Last Menst rual Perio d: not avail able Menst rual Histo ry: Post- menop ausal Contr acept al Histo ry: not avail able Ancil noni Testi ng: HPV (ASCU S) Case image d by the ThinP rep Imagi ng Syste m with jae gutierrez or judah peralta. Perfo rmed at [facility] ate Refer ence [facility] at[facility] Cytol o[facility], [address] [place] Clini diego Histo ry (othe r): Z01.4 19, ROUTI NE SCREE N LPS 07/03 NEG Phone #: [phone], On-Ca ll Patho logis t: [id number] Not Available [facility] (Centralized Electronic Ordering - All Locations) Patient Can Go To The Location Of Their Choice, [id number] 07/08/2023 11:33:23 06/30/20 24 06/30/2024 wet mount , vagin al Clue Cells negati ve Not Available In-Office Order Internal Use Only DO Not Attach Compendium DO Not Attach Compendium, Do Not Delete/merge, [id number] 06/30/2024 10:13:18 06/30/20 24 06/30/2024 wet mount , vagin al Trichomonas negati ve Not Available In-Office Order Internal Use Only DO Not Attach Compendium DO Not Attach Compendium, Do Not Delete/merge, [id number] 06/30/2024 10:13:18 06/30/20 24 06/30/2024 wet mount , vagin al Hyphae positi ve Not Available In-Office Order Internal Use Only DO Not Attach Compendium DO Not Attach Compendium, Do Not Delete/merge, [id number] 06/30/2024 10:13:18 06/30/20 24 06/30/2024 wet mount , vagin al atrophic epithelium positi ve Not Available In-Office Order Internal Use Only DO Not Attach Compendium DO Not Attach Compendium, Do Not Delete/merge, [id number] 06/30/2024 10:13:18 08/04/20 24 08/05/2024 URINE CULTU RE, ROUTI NE urine culture, routine Final report Not Available [facility] ([facility]) [address] [place], [address], 08/06/2024 00:05:23 08/04/20 24 08/05/2024 URINE CULTU RE, ROUTI NE result 1 COMMEN T Mixed uroge nital erika 25,00 0-50, 000 colon y formi ng units per mL Not Available [facility] ([facility]) [address] [facility], [place], [address], 08/06/2024 00:05:23 08/04/20 24 08/08/2024 IGP, RFX APTIM A HPV ASCU diagnosis: Commen t NEGAT AL FOR INTRA EPITH ELIAL LESIO N OR MALRIO DENI . Not Available [facility] ([facility]) [address] [facility], [place], [address], 08/08/2024 16:05:44 08/04/20 24 08/08/2024 IGP, RFX APTIM A HPV ASCU specimen adequacy: Commen t Satis facto ry for evalu ation . Not Available [facility] ([facility]) [address] [place], [address], 08/08/2024 16:05:44 08/04/20 24 08/08/2024 IGP, RFX APTIM A HPV ASCU clinician provided ICD10: Ismael montes Z01.4 19 R30.0 Not Available [facility] ([facility]) [address] [place], [address], 08/08/2024 16:05:44 08/04/20 24 08/08/2024 IGP, RFX APTIM A HPV ASCU performed by: Ismael bhakta, Tyler montes (ASCP ) Not Available [facility] ([facility]) [address] [place], [address], 08/08/2024 16:05:44 08/04/20 24 08/08/2024 IGP, RFX APTIM A HPV ASCU . . Not Available [facility] ([facility]) [address] [place], [address], 08/08/2024 16:05:44 08/04/20 24 08/08/2024 IGP, RFX APTIM A HPV ASCU note: Ismael montes The Pap smear is a scree jes test chacha coy to aid in the detec tion of beronica ligna nt and malig nant condi tions of the uteri ne cervi x. It is not a diagn ostic proce dure and shoul d not be used as the sole means of detec ting cervi diego cance r. Both false -posi tive and false -nega tive repor ts do occur . Not Available [facility] ([facility]) [address] [place], [address], 08/08/2024 16:05:44 08/04/20 24 08/08/2024 IGP, RFX APTIM A HPV ASCU test methodology: Ismael montes This liqui d based ThinP rep(R ) pap test was scree zbigneiw with the use of an image guide d systnitin m. Not Available [facility] ([facility]) [address] [facility], [place], [address], 08/08/2024 16:05:44 08/04/2008/08/2024 IGP, RFX APTIM A HPV ASCU . Commen t The HPV DNA refle x crite desiree were not met with this speci men resul t there fore, no HPV testi ng was perfo rmed. Not Available [facility] ([facility]) [address] [facility], [place], [address], 08/08/2024 16:05:44 08/04/20 24 08/04/2024 urina lysis , dipst ick, auto glucose negati ve Not Available In-Office Order Internal Use Only DO Not Attach Compendium DO Not Attach Compendium, Do Not Delete/merge, 08/04/2024 10:35:00 08/04/2008/04/2024 urina lysis , dipst ick, auto ROOPA negati ve Not Available In-Office Order Internal Use Only DO Not Attach Compendium DO Not Attach Compendium, Do Not Delete/merge, 08/04/2024 10:35:00 08/04/20 24 08/04/2024 urina lysis , dipst ick, auto ket negati ve Not Available In-Office Order Internal Use Only DO Not Attach Compendium DO Not Attach Compendium, Do Not Delete/merge, 08/04/2024 10:35:00 08/04/20 24 08/04/2024 urina lysis , dipst ick, auto SG 1.025 Not Available In-Office Order Internal Use Only DO Not Attach Compendium DO Not Attach Compendium, Do Not Delete/merge, 08/04/2024 10:35:00 08/04/20 24 08/04/2024 urina lysis , dipst ick, auto BLO MODERA TE Not Available In-Office Order Internal Use Only DO Not Attach Compendium DO Not Attach Compendium, Do Not Delete/merge, 08/04/2024 10:35:00 08/04/20 24 08/04/2024 urina lysis , dipst ick, auto PH 5.0 Not Available In-Office Order Internal Use Only DO Not Attach Compendium DO Not Attach Compendium, Do Not Delete/merge, [id number] 08/04/2024 10:35:00 08/04/20 24 08/04/2024 urina lysis , dipst ick, auto PRO NEGATI VE Not Available In-Office Order Internal Use Only DO Not Attach Compendium DO Not Attach Compendium, Do Not Delete/merge, [id number] 08/04/2024 10:35:00 08/04/20 24 08/04/2024 urina lysis , dipst ick, auto URO 0.2 E.U. /dl Not Available In-Office Order Internal Use Only DO Not Attach Compendium DO Not Attach Compendium, Do Not Delete/merge, [facility] 08/04/2024 10:35:00 08/04/20 24 08/04/2024 urina lysis , dipst ick, auto NIT NEGATI VE Not Available In-Office Order Internal Use Only DO Not Attach Compendium DO Not Attach Compendium, Do Not Delete/merge, [facility] 08/04/2024 10:35:00 08/04/20 24 08/04/2024 urina lysis , dipst ick, auto ASHLEE NEGATI VE Not Available In-Office Order Internal Use Only DO Not Attach Compendium DO Not Attach Compendium, Do Not Delete/merge, [facility] 08/04/2024 10:35:00 08/04/20 24 08/04/2024 hemog lobin , gastr ointe antelmo l, stool Occult Blood negati ve Not Available In-Office Order Internal Use Only DO Not Attach Compendium DO Not Attach Compendium, Do Not Delete/merge, [facility] 08/04/2024 10:16:45 08/08/2008/10/2025 IGP, RFX APTIM A HPV ASCU diagnosis: Commen t NEGAT AL FOR INTRA EPITH ELIAL LESIO N OR MALRIO CHEEMA . Not Available [facility] ([facility]) [address], [place], [address], 08/10/2025 12:16:09 08/08/20 25 08/10/2025 IGP, RFX APTIM A HPV ASCU specimen adequacy: Ismael montes Satis facto ry for evalu ation . Not Available [facility] ([facility]) [address] [place], [address], 08/10/2025 12:16:09 08/08/20 25 08/10/2025 IGP, RFX APTIM A HPV ASCU clinician provided ICD10: Ismael montes Z12.4 Not Available [facility] ([facility]) [address] [place], [address], 08/10/2025 12:16:09 08/08/2008/10/2025 IGP, RFX APTIM A HPV ASCU performed by: Ismael Franklin, Cytol ogist (ASCP ) Not Available [facility] ([facility]) [address] [place], [address], 08/10/2025 12:16:09 08/08/20 25 08/10/2025 IGP, RFX APTIM A HPV ASCU . . Not Available [facility] ([facility]) [address] [place], [address], 08/10/2025 12:16:09 08/08/2008/10/2025 IGP, RFX APTIM A HPV ASCU note: Ismael montes The Pap smear is a scree jes test desig zbigniew to aid in the detec tion of beronica ligna nt and malig nant condi tions of the uteri ne cervi x. It is not a diagn ostic proce dure and shoul d not be used as the sole means of detec ting cervi diego cance r. Both false -posi tive and false -nega tive repor ts do occur . Not Available [facility] ([facility]) [address] [place], [address], 08/10/2025 12:16:09 08/08/20 25 08/10/2025 IGP, RFX APTIM A HPV ASCU test methodology: Commen t This liqui d based ThinP rep(R ) pap test was azar coy with the use of an image guide christiana alexander. Not Available [facility] ([facility]) [address] [place], [address], 08/10/2025 12:16:09 08/08/20 25 08/10/2025 IGP, RFX APTIM A HPV ASCU . Commen t The HPV DNA refle x crite desiree were not met with this speci men resul t there fore, no HPV testi ng was perfo rmed. Not Available [facility] ([facility]) [address] [facility], [place], [address], 08/10/2025 12:16:09 06/23/20 23 06/23/2023 MAMMO , azar andre, digit al, bilat eral No observ ation [facility] ed. [facility] [address] [place], [address], 06/23/2023 14:24:48 10/13/20 25 10/13/2025 bone densi ty No observ ation record ed. [address] (Human Resources) [address] [place], [address], 10/13/2025 14:21:48 10/18/20 25 10/13/2025 bone densi ty No observ ation record ed. [facility] Inpatient [address] [place], [address], 10/18/2025 07:51:39 Result Notes None recorded. 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,[address], [place], [address] , [place] [facility], 5 13:45:20 Osteoporos is [id number] Active next bone density due spring Mojgan Kapadia MD [address], [place], [address], [place] - [facility], 5 14:14:21 Urinary incontinen ce [id number] Active She has a mild skin breakdown just inside the labia, due to chronic wetness Mojgan Kapadia MD [address], [place], [address], [place] - [facility], 5 14:13:19 Herpes zoster 9186259 Active 2018 Mojgan Kapadia MD [address], [place], [address], [place] - [facility], 9 10:41:18 Low blood pressure 18715295 Active 2022 SHIRIN Go in [facility], 3 10:04:51 Problem Notes None recorded. Procedures Surgical History Date Name Laterality Status Provider Name and Address Organization Details Recorded Time 4 Most Recent Mammogram completed Alysha Butcher in [facility], 08/08/2025 13:44:27 0 Colonoscopy with biopsy completed Alysha Butcher [facility], 05/12/2020 13:37:17 Imaging Results None recorded. Procedure Notes None recorded. Medical Equipment None Reported. Allergies Allergen ID Allergen Name Allergen Category Reaction Reaction Severity Criticality Documentation Date Start Date Code Code System Note Provider Name and Address Organization Details Recorded Time Compazine medicatio n Not available Not available Not available 09/05/2015 6 RxNorm SHIRIN Davey in [facility], 5 13:22:43 Keflex medicatio n Not available Not available Not available 09/05/2015 7 RxNorm SHIRIN Davey in [facility], 5 13:22:56 [address]39 Substance with tetracycl ine structure (substanc e) medicatio n rash Not available Not available 11/27/2018 81362 8001 SNOMED SHIRIN Candelario in [facility], 9 10:16:23 92019 clindamyc in Not available diarrhea Not available Not available 08/04/2024 2582 RxNorm SHIRIN Candelario in [facility], 4 10:10:10 Medications Name Sig Start Date Stop Date Status Note LastModified by Organization Details LastModified Time ondansetron odt 4 mg tbdp 09/10 completed Not Available Not Available Not Available azithromyci n 250 mg tabs active Not Available Not Available Not Available topiramate 25 mg tabs 09/10 completed Not Available Not Available Not Available propranolol hcl er 60 mg cp24 09/10 completed Not Available Not Available Not Available alendronate sodium 70 mg tabs 09/10 completed Not Available Not Available Not Available sertraline hcl 50 mg tabs 09/10 completed Not Available Not Available Not Available fluticasone propionate 50 mcg/act susp 09/10 completed Not Available Not Available Not Available Anti-Diarrh eal (loperamide ) 2 mg tablet TAKE TWO TABLETS BY MOUTH FOUR TIMES A DAY; TAKE 2 TABLETS BY MOUTH 30 MINUTES BEFORE MEALS AND AT BEDTIME 08/04 completed Not Available Not Available Not Available nystatin 100,000 unit/mL oral suspension 05/12 completed Not Available Not Available Not Available doxycycline hyclate 100 mg capsule TAKE 1 CAPSULE BY MOUTH TWICE A DAY FOR 14 DAYS . TAKE WITH AT LEAST 8 OUNCES OF WATER, DO NOT LIE DOWN FOR 30 MINUTES AFTER. TAKE MULTIVITA 08/08 completed Not Available Not Available Not Available clindamycin HCl 300 mg capsule 11/10 completed Not Available Not Available Not Available loperamide 2 mg capsule TAKE ONE CAPSULE BY MOUTH FOUR TIMES A DAY; 30 MINUTES BEFORE MEALS AND AT BEDTIME active Not Available Not Available No t Available atorvastati n 10 mg tablet TAKE ONE TABLET BY MOUTH DAILY AT BEDTIME active Not Available Not Available No t Available azithromyci n 250 mg tablet TAKE 2 TABLETS ON FIRST DAY , THEN 1 TABLET DAILY FOR 4 DAYS 06/02 completed Not Available Not Available Not Available lidocaine 5 % topical cream APPLY ONE APPLICATI ON EXTERNAL THREE TIMES A DAY active Not Available Not Available No t Available ofloxacin 0.3 % eye drops INSTILL 1 DROP INTO LEFT EYE FOUR TIMES A DAY FOR 1 WEEK 06/02 completed Not Available Not Available Not Available fluconazole 150 mg tablet TAKE 1 TABLET BY MOUTH IMMEDIATE LY REPEAT IN 7 DAYS IF SYMPTOMS PERSIST 08/08 completed Not Available Not Available Not Available valacyclovi r 1 gram tablet TAKE ONE TABLET BY MOUTH THREE TIMES A DAY FOR 7 DAYS 08/04 completed Not Available Not Available Not Available hydrocodone 5 mg-acetamin ophen 325 mg tablet TAKE ONE TABLET BY MOUTH EVERY 6 HOURS NEEDED 06/02 completed Not Available Not Available Not Available metronidazo le 0.75 % (37.5 mg/5 gram) vaginal gel Insert 1 applicato rful every day by vaginal route. 05/12 completed Not Available Not Available Not Available prednisone 20 mg tablet 05/12 completed Not Available Not Available Not Available alendronate 70 mg tablet 08/08 completed Not Available Not Available Not Available propranolol ER 60 mg capsule,24 hr,extended release TAKE ONE CAPSULE BY MOUTH EVERY DAY active Not Available Not Available No t Available topiramate 25 mg tablet TAKE ONE TABLET BY MOUTH DAILY AT BEDTIME active Not Available Not Available No t Available meclizine 12.5 mg tablet 05/12 completed Not Available Not Available Not Available acetaminoph en 300 mg-codeine 30 mg tablet 09/10 completed Not Available Not Available Not Available doxycycline monohydrate 100 mg tablet TAKE ONE TABLET BY MOUTH TWO TIMES DAILY 08/04 completed Not Available Not Available Not Available tramadol 50 mg tablet 11/10 completed Not Available Not Available Not Available amoxicillin 500 mg tablet TAKE ONE TABLET BY MOUTH THREE TIMES A DAY 06/02 completed Not Available Not Available Not Available oxycodone-a cetaminophe n 5 mg-325 mg tablet TAKE ONE TABLET BY MOUTH EVERY 6 HOURS NEEDED 06/02 completed Not Available Not Available Not Available prednisolon e acetate 1 % eye drops,suspe nsion PLACE 1 DROP IN THE LEFT EYE FOUR TIMES A DAY DIRECTED active Not Available Not Available No t Available oseltamivir 75 mg capsule 05/12 completed Not Available Not Available Not Available neomycin-po lymyxin-dex ameth 3.5 mg/mL-10,00 0 unit/mL-0.1 % eye drops 05/12 completed Not Available Not Available Not Available nystatin 100,000 unit/gram topical cream APPLY 1 APPLICATI ON TOPICALLY TWICE A DAY 08/04 completed Not Available Not Available Not Available nitroglycer in 0.[address] ONE TABLET UNDER THE TONGUE NEEDED FOR CHEST PAIN, MAY REPEAT ONE TIME active Not Available Not Available No t Available gabapentin 300 mg capsule 05/12 completed Not Available Not Available Not Available diclofenac sodium 75 mg tablet,yolie yed release 05/12 completed Not Available Not Available Not Available amoxicillin 250 mg capsule 09/10 completed Not Available Not Available Not Available codeine 10 mg-guaifene sin 100 mg/5 mL oral liquid 07/03 completed Not Available Not Available Not Available Transderm-S copy messenger 1 mg over [address] ONE PATCH ONTO THE SKIN EVERY 3 DAYS 05/12 completed Not Available Not Available Not Available ibuprofen 600 mg tablet 07/03 completed Not Available Not Available Not Available estradiol 0.01% (0.1 mg/gram) vaginal cream WITH FINGERTIP APPLY A PEA SIZED AMOUNT AND APPLY TO URETHRA VAGINALLY AT BEDTIME 2024 active Not Available Not Available Not Avai lable albuterol sulfate HFA 90 mcg/actuati on aerosol inhaler 05/12 completed Not Available Not Available Not Available ondansetron 4 mg disintegrat ing tablet DISSOLVE 1 TABLET IN MUUTH ONCE DAILY IF NEEDED FOR NAUSEA DUE TO MIGRAINE active Not Available Not Available No t Available fluticasone propionate 50 mcg/actuati on nasal spray,suspe nsion active Not Available Not Available Not Available clotrimazol e 1 % topical cream APPLY ONE APPLICATI ON EXTERNALL Y TWICE A DAY AFFECTED AREA(S) active Not Available Not Available No t Available sertraline 50 mg tablet TAKE ONE TABLET BY MOUTH EVERY MORNING active Not Available Not Available No t Available doxycycline hyclate 100 mg tablet TAKE ONE TABLET BY MOUTH TWICE A DAY 07/03 completed Not Available Not Available Not Available diazepam 5 mg tablet 05/12 completed Not Available Not Available Not Available oxycodone 5 mg tablet 05/12 completed Not Available Not Available Not Available moxifloxaci n 0.5 % eye drops 05/12 completed Not Available Not Available Not Available ketorolac 0.4 % eye drops 05/12 completed Not Available Not Available Not Available solifenacin 10 mg tablet TAKE ONE TABLET BY MOUTH ONCE DAILY active Not Available Not Available No t Available [facility] 100,000 unit/gram topical powder APPLY 1 APPLICATI ON TOPICALLY TWICE DAILY NEEDED. active Not Available Not Available No t Available Fish Oil active Not Available Not Avai lable Not Available Baby Aspirin 07/03 completed Not Available Not Available Not Available Vitamin B12 06/02 completed Not Available Not Available Not Available peg 3350-electr olytes 236 gram-22.74 gram-6.74 gram-5.86 gram solution 07/03 completed Not Available Not Available Not Available diclofenac 1 % topical gel 05/12 completed Not Available Not Available Not Available Gavilyte-C 240 gram-22.72 gram-6.72 gram-5.84 gram oral solution 07/03 completed Not Available Not Available Not Available Aerochamber Plus Flow-Vu active Not Available Not Available Not Available mirabegron ER 25 mg tablet,exte nded release 24 hr TAKE ONE TABLET BY MOUTH EVERY DAY active Not Available Not Available No t Available Multi Vitamin active Not Available Not Available Not Available Securens active Not Available Not Available Not Available Fluad 65yr up(PF)45 mcg(15 mcgx3)/0.5 mL intramuscul ar syringe VACCINATI ON ADMINISTE RED BY PHARMACIS T active Not Available Not Available No t Available Paxlovid 300 mg (150 mg x 2)-100 mg tablets in a dose pack TAKE 3 TABLETS BY MOUTH TWICE DAILY FOR 5 DAYS. STOP ATORVASTA TIN WHILE ON THIS) 06/02 completed Not Available Not Available Not Available Vitals Date Recorded Body height Body mass index (BMI) Body weight Heart rate Systolic And Diastolic Provider Name and Address Organization Details Last Updated DateTime 06/02/2023 157.48 cm 22.1 kg/m2 43659.68 g 63 /min 126/71 mm[Hg] Beulah Henderson MA - [facility], 06/02/2023 13:00:18 Date Recorded Body height Body temperature Body mass index (BMI) Body weight Heart rate Systolic And Diastolic Provider Name and Address Organization Details Last Updated DateTime 4 157.48 cm 97.1 [degF] 24 kg/m2 96062.3 2 g 64 /min 133/77 mm[Hg] Alysha Butcher in [facility], 4 09:56:38 Date Recorded Body height Body mass index (BMI) Body weight Heart rate Systolic And Diastolic Provider Name and Address Organization Details Last Updated DateTime 07/04/2023 157.48 cm 22.1 kg/m2 64684.68 g 76 /min 118/61 mm[Hg] Beulah Butcher in [facility], 07/04/2023 10:05:02 Date Recorded Body height Heart rate Body temperature Body mass index (BMI) Body weight Systolic And Diastolic Provider Name and Address Organization Details Last Updated DateTime 4 157.48 cm 71 /min 98.1 [degF] 24 kg/m2 10111.0 4 g 134/80 mm[Hg] Alysha Butcher in [facility], 4 10:06:21 Date Recorded Body weight Body mass index (BMI) Body height Heart rate Systolic And Diastolic Provider Name and Address Organization Details Last Updated DateTime 08/08/2025 40559.1 g 24.9 kg/m2 156.21 cm 72 /min 143/80 mm[Hg] Alysha Butcher in [facility], 08/08/2025 13:40:19 Social History Question Answer Notes LastModified by Organizat ion Details LastModified Time Tobacco Smoking Status Never Smoker Not Available [facility] 09/26/2020 03:19:37 What Is Your Level Of Caffeine Consumption? Moderate [id number] Information not available 09/26/2020 In The 14 Days Before Symptom Onset, Have You Had Close Contact With A Laboratory-confirm ed COVID-19 While That Case Was Ill? No Information n ot available 07/03/2022 In The 14 Days Before Symptom Onset, Have You Had Close Contact With A Person Who Is Under Investigation For COVID-19 While That Person Was Ill? No Information not available 07/03/2022 Have You Been To An Area Known To Be High Risk For COVID-19? No Information not available 07/03/2022 What Type Of Diet Are You Following? REGULAR [id number] Information n ot available 09/26/2020 Which Illicit Or Recreational Drugs Have You Used? No [id number] Information not available 09/26/2020 Do You Reside In Or Have You Traveled To An Area Where Ebola Virus Transmission Is Active? No [id number] Information not available 09/26/2020 Education Post Graduate Information not available 09/05/2015 How Many Days In The Past Year Have You Had A Heavy Drinking Consumption (4+ Female, 5+ Male)? 0 Information no t available 09/10/2016 Are There Any Guns Present In Your Home? No Information not available 07/03/2022 High Number Of Sexual Partners No Information not available 09/10/2016 To Which Gender Do You Self-identify? Female Information n ot available 09/10/2016 Marital Status Informatio n not available 09/05/2015 What Was The Date Of Your Most Recent Tobacco Screening? 08/08/2025 Information not available 08/08/2025 What Is Your Relationship Status? Information not available 07/03/2022 Are You Sexually Active? No [id number] Information not available 09/26/2020 How Much Tobacco Do You Smoke? No [id number] Information not available 09/26/2020 General Stress Level High Information not available 09/05/2015 How Many Years Have You Smoked Tobacco? 0 [id number] Information not available 09/26/2020 Have You Recently (within The Last 12 Weeks, Or During A Current ) Traveled To Or Lived In A Zika-affected Area? No Information not available 09/10/2016 Sex: Female Functional Status Question Answer Note LastModified by Organizat ion Details LastModified Time Do you use any illicit or recreational drugs? No Information not available 07/03/2022 Do you or have you ever used any other forms of tobacco or nicotine? No Information not available 07/03/2022 What is your level of alcohol consumption? None [id number] Information not available 09/26/2020 Do you or have you ever used smokeless tobacco? Never used smokeless tobacco [id number] Information not available 09/26/2020 Are you currently employed? No Information not available 06/02/2023 What is your occupation? retired Information not available 09/05/2015 Do you or have you ever used e-cigarettes or vape? Never used electronic cigarettes [id number] Information not available 09/26/2020 What is your exercise level? Occasional [id number] Information not available 09/26/2020 Mental Status Question Answer Note LastModified by Organization D etails LastModified Time Do you feel stressed (tense, restless, nervous, or anxious, or unable to sleep at night)? [id number] Information not available 08/04/2024 Family History Relationship Description Onset Age of this Age Resolved Age Notes LastModified by Organization Details LastModified Time Mother Non-Hodgkin' s lymphoma (clinical) 74 Not available 13:43:06 Father Myocardial infarction 82 92 [email or web address] Not available 09/05 13:26:51 Medical History Condition Response Anesthesia complications N High Blood Pressure N Candidate for MyRisk panel N Autoimmune Condition N Thyroid Problems N Kidney or Bladder Problems N GI Problems N Lung Disease N Depression Y Defects or Inherited Disease N Anemia N History of Ovarian Cancer N History of Breast Cancer N BRIANA exposure N BRCA testing in past N Osteopenia Y Psychiatric Illness Y Anxiety Disorder Y Diabetes N Arthritis Y Headaches or Migraines Y Infertility N Asthma N History of Cancer N Endometriosis N Hepatitis N Heart Disease N Hypertension N Osteoporosis Y Gynecological History Statement/Question Response Menses Monthly N If Post Menopausal, Age at Menopause 50 Age at Menarche 14 Most Recent Mammogram 09/30/2024 Age at First Child 30 Obstetrics History GPAL:G 3 P 3 0 0 3 Type Value Full Term 3 Living 3 Total 3 Immunizations Vaccine Type Date Status Note Provider Nam e and Address Organization Details Recorded Time Influenza, split virus, trivalent, preservative 5 completed Beulah johansen MA - [facility], 06/02/2023 13:00:02 Influenza, split virus, quadrivalent, preservative 6 completed Alysha johansen, MA - [facility], 09/10/2016 09:05:37 Influenza, split virus, quadrivalent, preservative 8 completed Alysha Landaverde null, [place] - [facility], 11/10/2018 09:08:23 Influenza, split virus, quadrivalent, preservative 0 completed Beulah johansen, [place] - [facility], 06/02/2023 13:00:01 COVID-19, mRNA, LNP-S, PF, 100 mcg/0.5mL dose or 50 mcg/0.25mL dose 1 completed Beulah johansen MA - [facility], 06/02/2023 13:00:02 Influenza, split virus, quadrivalent, preservative 1 completed Beulah johansen MA - [facility], 06/02/2023 13:00:01 Influenza, adjuvanted, trivalent, PF 9 completed Beulah johansen MA - [facility], 06/02/2023 13:00:01 zoster recombinant 0 completed Beulah johansen MA - [facility], 06/02/2023 13:00:01 zoster recombinant 0 completed Beulah johansen, [place] - [facility], 06/02/2023 13:00:01 Influenza, high-dose, quadrivalent, PF 0 completed Beulah johansen MA - [facility], 06/02/2023 13:00:01 Influenza, adjuvanted, quadrivalent, PF 2 completed Beulah johansen MA - [facility], 06/02/2023 13:00:01 COVID-19, mRNA, LNP-S, PF, 100 mcg/0.5mL dose or 50 mcg/0.25mL dose 1 completed Beulah johansen MA - [facility], 06/02/2023 13:00:01 COVID-19, mRNA, LNP-S, PF, 100 mcg/0.5mL dose or 50 mcg/0.25mL dose 1 completed Beulah johansen MA - [facility], 06/02/2023 13:00:01 COVID-19, mRNA, LNP-S, PF, 100 mcg/0.5mL dose or 50 mcg/0.25mL dose 2 completed Beulah johansen MA - [facility], 06/02/2023 13:00:02 COVID-19, mRNA, LNP-S, PF, 100 mcg/0.5mL dose or 50 mcg/0.25mL dose 1 completed Beulah johansen MA - [facility], 06/02/2023 13:00:02 pneumococcal polysaccharide PPV23 2 completed Beulah johansen MA - [facility], 06/02/2023 13:00:02 Td(adult) unspecified formulation 2 completed Beulah johansen MA - [facility], 06/02/2023 13:00:02 Tdap 2 completed Beulah johansen MA - [facility], 06/02/2023 13:00:02 Tdap 1 completed Beulah johansen MA - [facility], 06/02/2023 13:00:02 Tdap 1 completed Beulah johansen MA - [facility], 06/02/2023 13:00:02 Pneumococcal conjugate PCV 13 5 completed Beulah johansen MA - [facility], 06/02/2023 13:00:02 zoster live 2 completed Beulah johansen MA - [facility], 06/02/2023 13:00:02 Influenza, high-dose, trivalent, PF 7 completed Beulah johansen MA - [facility], 06/02/2023 13:00:02 Influenza, high-dose, trivalent, PF 6 completed Beulah Henderson null, [place] - [facility], 06/02/2023 13:00:02 Influenza, high-dose, trivalent, PF 1 completed Beulah Henderson null, [place] - [facility], 06/02/2023 13:00:02 Influenza, high-dose, trivalent, PF 8 completed Beulah Henderson null, [place] - [facility], 06/02/2023 13:00:02 Influenza, split virus, trivalent, preservative 9 completed Beulah johansen, [place] - [facility], 06/02/2023 13:00:02 Influenza, split virus, trivalent, preservative 2 completed Beulah johansen, [place] - [facility], 06/02/2023 13:00:02 Influenza, split virus, trivalent, preservative 0 completed Beulah Henderson null, MA - [facility], 06/02/2023 13:00:02 Influenza, split virus, trivalent, preservative 3 completed Beulah Henderson null, [place] - [facility], 06/02/2023 13:00:02 Influenza, split virus, trivalent, preservative 4 completed Beulah johansen, MA - [facility], 06/02/2023 13:00:02 Influenza, split virus, trivalent, preservative 8 completed Beulah Henderson null, [place] - [facility], 06/02/2023 13:00:02 Influenza, split virus, trivalent, preservative 7 completed Beulah Henderson null, [place] - [facility], 06/02/2023 13:00:02 Influenza, split virus, trivalent, preservative 1 completed Beulah johansen, [place] - [facility], 06/02/2023 13:00:02 Influenza, split virus, trivalent, preservative 5 completed SHIRIN Go in [facility], 06/02/2023 13:00:02 Novel [id number], preservative-free 0 completed SHIRIN Go in [facility], 06/02/2023 13:00:02 Influenza, high-dose, quadrivalent, PF 3 completed SHIRIN Candelario in [facility], 06/30/2024 09:53:29 RSV, bivalent, protein subunit RSVpreF, diluent reconstituted, 0.5 mL, PF 4 completed SHIRIN Candelario in [facility], 06/30/2024 09:53:29 COVID-19, mRNA, LNP-S, PF, 50 mcg/0.5 mL 3 completed SHIRIN Candelario in [facility], 06/30/2024 09:53:29 Influenza, adjuvanted, trivalent, PF 4 completed Not Available [facility] 08/09/2025 08:33:18 Pneumococcal conjugate PCV20, polysaccharide [id number] conjugate, adjuvant, PF 5 completed Not Available [facility] 08/09/2025 08:33:18 Past Encounters Encounter ID Performer Location Encounter Start Date Encounter Closed Date Diagnosis/Indication Diagnosis SNOMED-CT Code Diagnosis ICD10 Code Diagnosis IMO Codes Diagnosis Note [id number] MD MOJGAN Nava MD [address] [facility] [place] [address] 09/05/2015 12:59:20 09/05/2015 15:05:41 Specialized medical examination 93795954 Z01.419 Screening for malignant neoplasm of rectum 798948084 Z12.12 Screening mammography 24 824262 Z12.31 [id number] MD MOJGAN Nava MD [address] [facility] [place] [address] 09/10/2016 08:57:22 09/10/2016 11:10:26 Specialized medical examination 59479554 Z01.419 Screening for malignant neoplasm of rectum 789648033 Z12.12 Screening mammography 24 878952 Z12.31 Urinary incontinence 165 144768 R32 [id number] MD MOJGAN Nava MD [address] [place] [address], [address] [address] 11/10/2018 08:56:20 11/10/2018 12:50:49 Vulvitis 58443797 N76.2 B96.89 Candidal vulvovaginitis 82833009 B37.3 [id number] MD MOJGAN Nava MD [address] [place] [address], [place] [address] 11/27/2018 10:07:34 11/27/2018 12:04:17 Specialized medical examination 46579729 Z01.419 Screening mammography 24 743061 Z12.31 Herpes zoster 2208126 B0 2.9 [id number] MD MOJGAN Nava MD [address] [place] [address], [place] [address] 05/12/2020 13:27:29 05/12/2020 15:22:49 Screening for malignant neoplasm of cervix 236149510 Z12.4 Screening mammography 24 464452 Z12.31 Screening for osteoporosis 023969502 Z13.820 [id number] MD MOJGAN Nava MD [address] [place] [address] [place] [address] 07/03/2022 10:39:58 07/03/2022 11:52:30 Specialized medical examination 29149991 Z01.419 Screening for malignant neoplasm of rectum 390650668 Z12.12 Screening mammography 24 984681 Z12.31 [id number] MD MOJGAN Nava MD [address] [place] [address], [place] [address] 06/02/2023 12:52:36 06/02/2023 14:15:20 Candidal vulvovaginitis 90844972 B37.31 [id number] MD MOJGAN Nava MD [address] [place] [address], [address] [place] [address] 07/04/2023 09:59:29 07/04/2023 10:46:58 Screening for malignant neoplasm of cervix 774855039 Z12.4 Screening mammography 24 198443 Z12.31 Screening for osteoporosis 550582894 N95.8 [id number] MD MOJGAN Nava MD [address] [place] [address] [address] [place] [address] 06/30/2024 09:45:37 06/30/2024 11:25:01 Candidal vulvovaginitis 61709428 B37.31 [id number] MD [facility]JGAN Nava MD [address] [facility] [place] [address] 08/04/2024 09:59:52 08/05/2024 12:05:05 Specialized medical examination 54346827 Z01.419 Screening for malignant neoplasm of rectum 761429225 Z12.12 Screening mammography 24 990055 Z12.31 Candidal vulvovaginitis 46449907 B37.31 Dysuria 83161922 R30.0 [id number] MD MOJGAN Nava MD [address] [facility], [address] [place] [address] 08/08/2025 13:35:56 08/08/2025 14:10:45 Screening for malignant neoplasm of cervix 904537757 Z12.4 Screening mammography 24 595086 Z12.31 Screening for osteoporosis 418675344 N95.8 Candidiasis of skin 4988 3006 B37.2 145598 Urinary incontinence 165 702755 R32 Health Concerns Section Related Observation LastModified by Organization Detai ls LastModified Time None Recorded Concern Status LastModified by Organization Details LastModified Time None Recorded Advance Directives Directive None Recorded Payers Insurance Date Sequence Insurance Name Policy Number Policy Rivera Covered Member ID Rivera Member ID Guarantor Name 09/12/2025 1 [facility] [id number] Mari Heaton [id number] Mari Heaton Notes Date Note Type Note Provider Name and Address Organization Details Recorded Time 06/02/2023 text/html She is here for a two day history of vaginal burning and pruritus. she just finished an rx for amoxicillin from the dentist, she had two teeth pulled. Mojgan Kapadia MD [address], [place], [address], [facility], 06/02/2023 13:18:47 07/04/2023 text/html She is here for annual exam, is doing well. Mojgan Kapadia MD [address], [place], [address], [facility], 07/04/2023 10:37:40 06/30/2024 text/html She is here for a one week history of worsening vaginal pruritis and vulvar burning. She is taking doxycycline for a breast infection. Mojgan Kapadia MD [address], [place], [address], [facility], 06/30/2024 10:28:34 08/04/2024 text/html She is here for annual exam, is doing well but has some dysuria for the past week. Mojgan Kapadia MD [address], [place], [address], [facility], 08/04/2024 10:42:05 08/08/2025 text/html She is here or annual, doing well. Note from 2023: She is here for annual exam, is doing well but has some dysuria for the past week.She has white, clumping vaginal discharge, rx diflucan for symptomatic monilia.Also she has a diaper rash in the introitus due to chronic wetness, some skin missing, advised to use the Desitin inside the introitus as well.Urine dip done for dysuria, has some blood, check urine culture. The blood may be from the diaper rash of the introitus. Mojgan Kapadia MD [address], [place], [address], [facility] - [facility], 08/08/2025 14:04:22 OBGyn Episode No OBEpisode recorded.
--- OUTSIDE RECORDS SUMMARY | 2025-10-19 12:05 | XMS_ITS | Encounter Summary ---
Author Organization [facility] Address [address] [place] [address] Care Team Providers Care Arc Welding Machine Operator Name Role Phone Maya Fajardo MD Primary Care Provider [phone] Encounter Details Date Type Department Care Team (Late st Contact Info) Description 10/19/2025 Results Follow-Up Adult Medicine [facility] [address], [place] [phone] Maya Fajardo MD [address] [place], [place] Social History Tobacco Use Types Packs/Day Years [...] care for your loved ones. For example, early childhood aide classroom or elderly care for an older adult? [...] on file documented as of this encounter Plan of Treatment Upcoming Encounters Date Type Department Care Team (Late st Contact Info) Description 01/11/2026 10:00 AM EST Appointment [facility] [address] [address] documented as of this encounter Visit Diagnoses Not on filedocumented in this encounter Additional Health Concerns Assessment Noted Time PHQ-9 Depression Total Score: 1 10/20/20 24 10:40 AM EST A fall risk assessment has been complete d for the patient 10/20/2024 10:41 AM EST documented as of this encounter Care Teams Arc Welding Machine Operator Relationship Specialty Start Date End Date Maya Fajardo MD [address] [place] [address] PCP - General Internal Medicine 12/26/15 documented as of this encounter
--- OUTSIDE RECORDS SUMMARY | 2025-10-19 12:05 | XMS_ITS | Clinical Summary ---
Author Organization [facility] Address [address] [place] [address] Phone Care Team Providers Care Bladder Tier Name Role Phone Maya Fajardo MD Primary Care Provider [phone] Allergies Active Allergy Reactions Criticality Noted Date Comments Cephalexin Monohydrate Medium 06/15/2009 Keflex Other Reaction(s): Hives/Urticaria Clindamycin 11/25/2019 Rash diarrhea Prochlorperazine High 01/23/2006 Compazine Doesn't remember Tramadol Nausea And Vomiting 01/31/2018 Medications loperamide (IMODIUM) 2 mg capsule 4 Active multivitamin (MULTIPLE VITAMINS ORAL) 1 tab qd Activ e nitroglycerin (NITROSTAT) 0.[address] ONE TABLET UNDER THE TONGUE NEEDED FOR CHEST PAIN, MAY REPEAT ONE TIME 25 tablet 5 Active mirabegron (MYRBETRIQ) 25 mg 24 hr tablet Take 1 tablet (25 mg total) by mouth 1 (one) time each day. 5 Active propranolol LA (INDERAL LA) 60 mg 24 hr capsule TAKE ONE CAPSULE BY MOUTH EVERY DAY 90 capsule 5 Active topiramate (TOPAMAX) 25 mg tablet TAKE ONE TABLET BY MOUTH DAILY AT BEDTIME 90 tablet 5 Active atorvastatin (LIPITOR) 10 mg tablet TAKE ONE TABLET BY MOUTH DAILY AT BEDTIME 90 tablet 5 Active sertraline (ZOLOFT) 50 mg tablet TAKE ONE TABLET BY MOUTH EVERY MORNING 90 tablet Active propranolol LA (INDERAL LA) 60 mg 24 hr capsule Take 1 capsule (60 mg total) by mouth 1 (one) time each day. 90 capsule 5 09/21/20 25 Discontinued topiramate (TOPAMAX) 25 mg tablet Take 1 tablet (25 mg total) by mouth at bedtime. 90 tablet 5 09/21/20 25 Discontinued atorvastatin (LIPITOR) 10 mg tablet Take 1 tablet (10 mg total) by mouth at bedtime. 90 tablet 5 09/21/20 25 Discontinued sertraline (ZOLOFT) 50 mg tablet Take 1 tablet (50 mg total) by mouth 1 (one) time each day in the morning. 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 Overview (10/19/2024): With large rectal sigmoidal mass removed (11/2019; [facility]) Chronic chest pain 08/29/2023 Overview (10/19/2024): 08/29/23 - Per PCP, patient receiving nitroglyercin for risk for cardiac vasospasm due to migraines Vitamin D deficiency 09/23/2022 Hyperlipidemia 09/05/2021 Osteoporosis 03/23/2015 Overview (10/13/2025): 03/07 T score spine -1.8 hip -2.8 03/09 T score spine -2.1 hip -2.4 09/14 T score spine -1.4 hip -2.4 10/18 T score spine -2.5 hip -1.6 Diverticulosis of colon without hemorrhage 07/27 Overview (10/19/2024): Incidental finding at colonoscopy 07/27/2008. Shingles 06/04/2008 Urinary incontinence 03/03/2007 B12 deficiency 03/03/2006 Depression 03/03/2006 Migraine 03/03/2006 Resolved Problems Problem Noted Date Diagnosed Date Resolved Date Other voice and resonance disorders 03/03/2006 04/11/2025 Overview (10/19/2024): Work up negative Encounters Date Type Department Care Team Description 10/19/2025 Results Follow-Up Adult Medicine [address] [phone] Maya Fajardo MD 10/13/2025 7:51 AM EST - 10/13/2025 11:59 PM EST Hospital Encounter [facility] Bone Density [address] [place] [address] Other specified menopausal and perimenopausal disorders Discharge Disposition: Home or Self Care 08/08/2025 Telephone Adult Medicine [address] [address] Maya Fajardo MD from Last 3 Months Immunizations Immunization Administration Dates Next Due H1N1 Inj Preservative [...] subun it RSVpreF, 0.5mL, Preservative Free (ABRYSVO) 50yo and older or 32 through 36 wks [...] the rectosigmoid; referred to colorectal surgery at [facility]. Medical History Medical History Date Comments Depressive disorder, not els ewhere classified Diverticulosis of colon (wit hout mention of hemorrhage) 07/27/2008 Incidental finding at colono scopy 07/27/2008. Tubulovillous adenoma polyp of rectum IBS (irritable bowel syndrome) Sacral nerve stimulator present 06/03/2022 Vitamin D deficiency 09/23/2022 B12 deficiency 03/03/2006 Osteoporosis 03/23/201503/07 T score spi ne -1.8 hip -2.8 [...] care for your loved ones. For example, rn child or elderly care for an older adult? [...] AM EST Appointment [facility] [address] [address] Health Maintenance Due Date Last Done Comments Depression Screening 11/24/2024 10/20/2024 COVID-19 Vaccine ( season) 2025 09/11/2023, 04/14/2022, 10/31/2021, Additional history exists Falls Risk Assessment 10/20/2025 10/20/2024, 024 Social Influencers of Health Screening 10/20/2025 10/20/2024 Cholesterol Screening (Lipid Panel) 08/31/2029 08/31/2024, 08/31/2024 DTaP,Tdap,and Td Vaccines (6 - Td or Tdap) 03/05/2032 03/05/2022, 09/18/2021, 05/22/2011, Additional history exists Osteoporosis Screening (Bone Density Screening) 10/13/2035 10/13/2025, 09/11/2022, 11/30/2018 Hepatitis C Screening Completed 03/08/2014 Colorectal Cancer Screening: Colonoscopy Discontinued 11/25/2019 Zoster Vaccines Completed 09/05/2020, 05/24, 08/10/2012 RSV Immunization Adult Patients Completed 02/19/2024 Pneumococcal Vaccine: 50+ Years Completed 07/17/2025, 03/23/2015, 10/14/2012 Influenza Vaccine Completed 09/06/2025, , 08/24/2023, Additional history exists HIB Vaccines Aged Out No longer eligi [...] EST Other specified menopausal and perimenopausal disorders LIPID PANEL Routine 08/31/2024 HEPATITIS C SCREENING Routine 03/08/2014 from Last 3 Months or Most Recently Relevant to Health Maintenance Results * BD Bone Density DXA Axial Skeleton (10/13/2025 8:34 AM EST) Anatomical Region Laterality Modality Wrist, Hip, L-spine Bone Densito metry 10/13/2025 8:48 AM EST Impressions 10/13/2025 8:56 AM EST 1. Osteoporosis. 2. FRAX analysis yields a 10-year probability of major osteoporotic fracture of 16.3% and a 10-year probability of hip fracture of 5.0%. Code 66759 -------- FINAL REPORT -------- Dictated By: Nasir Way Dictated Date: 10/13/2025 08:48 ET Assigned Physician: Nasir Way Reviewed and Electronically Signed By: Nasir Way Signed Date: 10/13/2025 08:56 ET Workstation ID: [id number] Transcribed By: Self Edit Transcribed Date: 10/13/2025 [...] density of the femurs bilaterally is 0.803 gm/[id number] is 80% of that of young normals and 106% of that of age matchedcontrols. This yields a T-score of -1.6 and a Z-score of 0.4 which isdiagnostic of osteopenia. IMPRESSION: 1. Osteoporosis. 2. FRAX analysis yields a 10-year probability of major osteoporoticfracture of 16.3% and a 10-year probability of hip fracture of 5.0%. Code 98123 -------- FINAL REPORT -------- Dictated By: Nasir Way Dictated Date: 10/13/2025 08:48 ET Assigned Physician: Nasir Way Reviewed and Electronically Signed By: Nasir Way Signed Date: 10/13/2025 08:56 ET Workstation ID: [id number] Transcribed By: Self Edit Transcribed Date: 10/13/2025 08:48 ET Mojgan Kapadia MD IMG DXA PROCEDURES Final Res ult * Lipid panel (08/31/2024) Pathologist [facility] LDL/HDL Ratio 2 0 - 4 Triglycerides 43 0 - 150 mg/dL Cholesterol 139 0 - 200 mg/dL HDL 73 >=40 mg/dL LDL Cholesterol 58 0 - 100 mg/dL Blood Venous blood specimen / Unknown Result [facility] Historical Provider LAB BLOOD ORDERABLES Estrella l Result * Hepatitis C Screening (03/08/2014) Pathologist [facility] Hepatitis C Screening Abstracted Historical Provider HEALTH MAINTENANCE Final Result from Last 3 Months or Most Recently Relevant to Health Maintenance Insurance [facility] Care Teams Bladder Tier Relationship Specialty Start Date End Date Maya Fajardo MD [address] [place] [address] PCP - General Internal Medicine 12/26/15
--- OUTSIDE RECORDS SUMMARY | 2025-10-19 12:05 | XMS_ITS | Continuity of Care Document ---
Author Organization [place] - [facility],, MOJGAN KAPADIA MD Address [address] [address] Care Team Providers Care Transition Manager Name Role Phone AUSTYN JARAMILLO Primary Care Provider [phone] Assessment No assessment recorded. Plan of Treatment [...] Go To The Location Of Their Choice, [address] 08/10/2025 12:16:09 Referral None recorded. Procedures None recorded. Surgeries None recorded. Imaging MAMMO, screening , digital, bilateral - Breast Aspiratio n and/or Biopsy if needed [address] [facility] (Mammography) , [address] [place], [address], 08/08/2025 14:10:46 bone density 2024 025 [facility] (Mammography) , [address] [place], [address], 10/13/2025 09:06:30 Medication Orders nystatin 100,000 unit/gram topical powder 2024 025 [facility], [address] [place], [address], 08/08/2025 14:02:23 Patient TargetsNo targets recorded. Patient Instructions Encounter Date Encounter Id Patient Instructions Last Modified By Organization Details Last Modified Time 08/08/2025 [id number] Stress Incontinence: Care Instructions Not available 08/08/2025 14:03:33 atrophic vaginitis: care instructions [email or web address] Not available 08/08/2025 13:49:10 learning about healthy weight [email or web address] Not available 08/08/2025 13:49:10 She is here [...] osteoporosis, bone density ordered. She saw the department operations manager urologist and has a periurethral procedure scheduled [...] Abnormal Flag Note LastModifiedBy Organization Detail LastModifiedTime 08/08/2008/10/2025 IGP, RFX APTIM A HPV ASCU diagnosis: Commen t NEGAT AL FOR INTRA EPITH WHITNEY Bryant OR MITCH CHEEMA . Not Available [facility] ([facility]) [address] [facility], [place], [address], 08/10/2025 12:16:09 08/08/2008/10/2025 IGP, RFX APTIM A HPV ASCU specimen adequacy: Commen t Satis facto ry for evalu ation . Not Available [facility] ([facility]) [address] [place], [address], 08/10/2025 12:16:09 08/08/2008/10/2025 IGP, RFX APTIM A HPV ASCU clinician provided ICD10: Ismael montes Z12.4 Not Available [facility] ([facility]) [address] [place], [address], 08/10/2025 12:16:09 08/08/2008/10/2025 IGP, RFX APTIM A HPV ASCU performed by: Ismael Franklin, Cytol ogist (ASCP ) Not Available [facility] ([facility]) [address] [place], [address], 08/10/2025 12:16:09 08/08/20 25 08/10/2025 IGP, RFX APTIM A HPV ASCU . . Not Available [facility] ([facility]) [address] [place], [address], 08/10/2025 12:16:09 08/08/2008/10/2025 IGP, RFX APTIM A [...] ts do occur . Not Available [facility] ([facility]) [address] [place], [address], 08/10/2025 12:16:09 08/08/20 25 08/10/2025 IGP, RFX APTIM A HPV ASCU test methodology: Ismael montes This liqui d based ThinP rep(R ) pap test was azar coy with the use of an image guide christiana alexander. Not Available [facility] ([facility]) [address] [facility], [place], [address], 08/10/2025 12:16:09 08/08/20 25 08/10/2025 IGP, RFX APTIM A HPV ASCU . Commen t The HPV DNA refle x crite desiree were not met with this speci men resul t there fore, no HPV testi ng was perfo rmed. Not Available [facility] ([facility]) [address] [facility], [place], [address], 08/10/2025 12:16:09 10/13/2010/13/2025 bone densi ty No observ ation record ed. [address] (Human Resources) [facility], [place], [address], 10/13/2025 14:21:48 10/18/2010/13/2025 bone densi ty No observ [facility] [address], [place], [address], 10/18/2025 07:51:39 Result Notes None recorded. 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 Mojgan Kapadia MD [address], [place], [address], [place] - [facility], 13:45:20 Osteoporos is 32484210 Active next bone density due spring Mojgan Kapadia MD [address], [place], [address], [place] [facility], 14:14:21 Urinary incontinen ce 498889498 Active She has a mild skin breakdown just inside the labia, due to chronic wetness Mojgan Kapadia MD [address], [place], [address], [place] [facility], 5 14:13:19 Herpes zoster 7821965 Active 2018 Mojgan Kapadia MD [address], [place], [address], [place] [facility], 9 10:41:18 Low blood pressure 13275930 Active 2022 Beulah [place] Malone in [facility], 3 10:04:51 Problem Notes None recorded. Procedures Surgical History Date Name Laterality Status Provider Name and Address Organization Details Recorded Time 4 Most Recent Mammogram completed Alysha Butcher in [facility], 08/08/2025 13:44:27 0 Colonoscopy with biopsy completed Alysha Butcher in [facility], 05/12/2020 13:37:17 Imaging Results None recorded. Procedure Notes None recorded. Medical Equipment None Reported. Allergies Allergen ID Allergen Name Allergen Category Reaction Reaction Severity Criticality Documentation Date Start Date Code Code System Note Provider Name and Address Organization Details Recorded Time 31579 Compazine medicatio n Not available Not available Not available 09/05/201556964 6 RxNorm Jannie Britt SHIRIN johansen in [facility], 5 13:22:43 75647 Keflex medicatio n Not available Not available Not available 09/05/201583153 7 RxNorm Jannie Britt [place] johansen in [facility], 5 13:22:56 [address]391 Substance with tetracycl ine structure (substanc e) medicatio n rash Not available Not available 11/27/2018 97583 8001 SNOMED SHIRIN Candelario in [facility], 9 10:16:23 [address]21 clindamyc in Not available diarrhea Not available Not available 08/04/2024 2582 RxNorm SHIRIN Candelario in [facility], 4 10:10:10 Medications Name Sig Start Date [...] Not Available Not Available Not Available Transderm-S utility helicopter repairer 1 mg over 3 days transdermal patch [...] Not Available Not Available No t Available Nyamyc 100,000 unit/gram topical powder APPLY 1 APPLICATI [...] active Not Available Not Available Not Available [facility] active Not Available Not Available Not Available [...] Available Not Available Vitals Date Recorded Body weight Body mass index (BMI) Body height Heart rate Systolic And Diastolic Provider Name and Address Organization Details Last Updated DateTime 08/08/2025 50721.1 g 24.9 kg/m2 156.21 cm 72 /min 143/80 mm[Hg] Alysha Landaverde [place] [facility], 08/08/2025 13:40:19 Social History Question Answer Notes LastModified by Organizat ion Details LastModified Time Tobacco Smoking Status Never Smoker Not Available [facility] 09/26/2020 03:19:37 What Is Your Level Of Caffeine Consumption? Moderate [id number] Information not available 09/26/2020 In The 14 [...] Type Of Diet Are You Following? REGULAR [id number] Information n ot available 09/26/2020 Which Illicit Or Recreational Drugs Have You Used? No [id number] Information not available 09/26/2020 Do You Reside In Or Have You Traveled To An Area Where Ebola Virus Transmission Is Active? No [id number] Information not available 09/26/2020 Education Post Graduate [...] available 07/03/2022 Are You Sexually Active? No [id number] Information not available 09/26/2020 How Much Tobacco Do You Smoke? No [id number] Information not available 09/26/2020 General Stress Level High Information not available 09/05/2015 How Many Years Have You Smoked Tobacco? 0 [id number] Information not available 09/26/2020 Have You Recently [...] is your level of alcohol consumption? None [id number] Information not available 09/26/2020 Do you or have you ever used smokeless tobacco? Never used smokeless tobacco [id number] Information not available 09/26/2020 Are you currently employed? No Information not available 06/02/2023 What is your occupation? retired Information not available 09/05/2015 Do you or have you ever used e-cigarettes or vape? Never used electronic cigarettes [id number] Information not available 09/26/2020 What is your exercise level? Occasional [id number] Information not available 09/26/2020 Mental Status Question Answer Note LastModified by Organization D etails LastModified Time Do you feel stressed (tense, restless, nervous, or anxious, or unable to sleep at night)? [id number] Information not available 08/04/2024 Family History Relationship Description Onset Age of this Age Resolved Age Notes LastModified by Organization Details LastModified Time Mother Non-Hodgkin' s lymphoma (clinical) 74 Not available 13:43:06 Father Myocardial infarction 82 92 [email or web address] Not available 09/05 13:26:51 Medical History Condition Response High Blood Pressure N Autoimmune Condition N Depression Y History of Ovarian Cancer N Anxiety Disorder Y Arthritis Y Infertility N Kidney or Bladder Problems N Osteopenia Y Asthma N Hepatitis N Anesthesia complications N Candidate for MyRisk panel N Lung Disease N Defects or Inherited Disease N BRCA testing in past N History of Cancer N Endometriosis N Thyroid Problems N GI Problems N Anemia N History of Breast Cancer N BRIANA exposure N Psychiatric Illness Y Diabetes N Headaches or Migraines Y Heart Disease N Hypertension N Osteoporosis Y [...] split virus, quadrivalent, preservative 6 completed Alysha Landaverde null, [place] - [facility], 09/10/2016 09:05:37 Influenza, split virus, quadrivalent, preservative 8 completed Alysha Neffor null, [place] [facility], 11/10/2018 09:08:23 Influenza, split virus, quadrivalent, preservative 0 completed Beulah Henderson null, [place] [facility], 06/02/2023 13:00:01 COVID-19, mRNA, LNP-S, PF, 100 mcg/0.5mL dose or 50 mcg/0.25mL dose 1 completed Beulah Henderson null, [place] [facility], 06/02/2023 13:00:02 Influenza, split virus, quadrivalent, preservative 1 completed Beulah Henderson null, [place] [facility], 06/02/2023 13:00:01 Influenza, adjuvanted, trivalent, PF 9 completed Beulah Henderson null, [place] [facility], 06/02/2023 13:00:01 zoster recombinant 0 completed Beulah Santiago null, [place] [facility], 06/02/2023 13:00:01 zoster recombinant 0 completed Beulah Henderson null, [place] [facility], 06/02/2023 13:00:01 Influenza, high-dose, quadrivalent, PF 0 completed Beulah Henderson null, [place] [facility], 06/02/2023 13:00:01 Influenza, adjuvanted, quadrivalent, PF 2 completed Beulah Santiago null, [place] [facility], 06/02/2023 13:00:01 COVID-19, mRNA, LNP-S, PF, 100 mcg/0.5mL dose or 50 mcg/0.25mL dose 1 completed Beulah Santiago null, [place] [facility], 06/02/2023 13:00:01 COVID-19, mRNA, LNP-S, PF, 100 mcg/0.5mL dose or 50 mcg/0.25mL dose 1 completed Beulah Henderson null, [place] - [facility], 06/02/2023 13:00:01 COVID-19, mRNA, LNP-S, PF, 100 mcg/0.5mL dose or 50 mcg/0.25mL dose 2 completed Beulah Santiago null, [place] [facility], 06/02/2023 13:00:02 COVID-19, mRNA, LNP-S, PF, 100 mcg/0.5mL dose or 50 mcg/0.25mL dose 1 completed Beulah Henderson null, [place] [facility], 06/02/2023 13:00:02 pneumococcal polysaccharide PPV23 2 completed Beulah Henderson null, [place] [facility], 06/02/2023 13:00:02 Td(adult) unspecified formulation 2 completed Beulah johansen, [place] - [facility], 06/02/2023 13:00:02 Tdap 2 completed Beulah Henderson null, [place] [facility], 06/02/2023 13:00:02 Tdap 1 completed Beulah johansen, [place] [facility], 06/02/2023 13:00:02 Tdap 1 completed Beulah Henderson null, [place] [facility], 06/02/2023 13:00:02 Pneumococcal conjugate PCV 13 5 completed Beulah Henderson null, [place] [facility], 06/02/2023 13:00:02 zoster live 2 completed Beulah Henderson null, [place] [facility], 06/02/2023 13:00:02 Influenza, high-dose, trivalent, PF 7 completed Beulah Santiago null, [place] [facility], 06/02/2023 13:00:02 Influenza, high-dose, trivalent, PF 6 completed Beulah johansen, [place] [facility], 06/02/2023 13:00:02 Influenza, high-dose, trivalent, PF 1 completed Beulah johansen [place] [facility], 06/02/2023 13:00:02 Influenza, high-dose, trivalent, PF 8 completed Beulah johansen, [place] [facility], 06/02/2023 13:00:02 Influenza, split virus, trivalent, preservative 9 completed Beulah johansen, [place] [facility], 06/02/2023 13:00:02 Influenza, split virus, trivalent, preservative 2 completed Beulah johansen [place] [facility], 06/02/2023 13:00:02 Influenza, split virus, trivalent, preservative 0 completed Beulah johansen [place] [facility], 06/02/2023 13:00:02 Influenza, split virus, trivalent, preservative 3 completed Beulah johansen [place] - [facility], 06/02/2023 13:00:02 Influenza, split virus, trivalent, preservative 4 completed Beulah johansen [place] [facility], 06/02/2023 13:00:02 Influenza, split virus, trivalent, preservative 8 completed Beulah johansen [place] [facility], 06/02/2023 13:00:02 Influenza, split virus, trivalent, preservative 7 completed Beulah johansen [place] [facility], 06/02/2023 13:00:02 Influenza, split virus, trivalent, preservative 1 completed SHIRIN Go in [facility], 06/02/2023 13:00:02 Influenza, split virus, trivalent, preservative 5 completed SHIRIN Go in [facility], 06/02/2023 13:00:02 Novel [id number], preservative-free 0 completed SHIRIN Go in [facility], 06/02/2023 13:00:02 Influenza, high-dose, quadrivalent, PF 3 completed SHIRIN Candelario in [facility], 06/30/2024 09:53:29 RSV, bivalent, protein subunit RSVpreF, diluent reconstituted, 0.5 mL, PF 4 completed SHIRIN Candelario in [facility], 06/30/2024 09:53:29 COVID-19, mRNA, LNP-S, PF, 50 mcg/0.5 mL 3 completed SHIRIN Candelario in [facility], 06/30/2024 09:53:29 Influenza, adjuvanted, trivalent, PF 4 completed Not Available [facility] 08/09/2025 08:33:18 Pneumococcal conjugate PCV20, polysaccharide [id number] conjugate, adjuvant, PF 5 completed Not Available [facility] 08/09/2025 08:33:18 Past Encounters Encounter ID Performer Location Encounter Start Date Encounter Closed Date Diagnosis/Indication Diagnosis SNOMED-CT Code Diagnosis ICD10 Code Diagnosis IMO Codes Diagnosis Note [id number] MD MOJGAN Nava MD [address] [facility] [place] [address] [facility] [address] 08/08/2025 13:35:56 08/08/2025 14:10:45 Screening for malignant neoplasm of cervix 699907022 Z12.4 Screening mammography 24 068975 Z12.31 Screening for osteoporosis 698320351 N95.8 Candidiasis of skin 4988 3006 B37.2 635168 Urinary incontinence 165 409007 R32 Health Concerns Section Related Observation LastModified by Organization Detai ls LastModified Time None Recorded Concern Status LastModified by Organization Details LastModified Time None Recorded Payers Encounter Date Sequence Insurance Name Policy Number Policy Rivera Covered Member ID Rivera Member ID Guarantor Name 08/08/2025 1 [facility] [id number] Mari Heaton [id number] Mari Sudarshan Notes Date Note Type Note Provider Name and Address Organization Details Recorded Time 08/08/2025 text/html She is here or annual, [...] rash of the introitus. Mojgan Kapadia MD [address] [place] [address],[address], [place], [address], [place] - [facility], 08/08/2025 14:04:22 OBGyn Episode No OBEpisode recorded.
[2025-10-25] VITALS (9 sets, daily range): BP systolic 98–123; BP diastolic 55–69; PULSE 71–87; RESP 15–18; TEMP 36.1–37; O2SAT 92–100; BMI 28.0
[2025-10-25] MEDS: Lactated Ringers 1,000 ML 100 ML IVCONT (09:16)
--- NOTE | 2025-10-25 09:30 | P.HPSUR_ITS ---
Pre-Procedural Eval Section A - 24 Hr Update-Section A only Date of Service: 10/25/25 The patient is an INPATIENT: No The patient has been examined within 24 hours of the surgical procedure. The History & Physical has been completed within 30 days and I have reviewed it.: Yes Section B - Complete if H&P > 30 days Chief Complaint: Stress incontinence (female) (male) Allergies: Allergies Allergy/AdvReac Type Severity Reaction Status Date / Time cephalexin AdvReac Mild Diarrhea Verified 10/25/25 09:24 clindamycin AdvReac Mild Diarrhea Verified 10/25/25 09:24 prochlorperazine (From AdvReac Mild Diarrhea Verified 10/25/25 09:24 Compazine) tramadol AdvReac Mild Hives Verified 10/25/25 09:24 Plan Diagnosis/Plan: Unchanged I have reviewed the history and physical and performed a pertinent physical examination on my patient. No changes have occurred unless specified. Cystoscopy Bulkamid urethral bulking. I have discussed the risks of bulking injection to the proximal urethra to include but not limited to urine retention requiring a durham catheter, need to repeat the procedure, hematuria, and urgenc y. Time Spent With Patient Time: Total time managing care of this patient today ____ minutes.
--- NOTE | 2025-10-25 10:39 | P.OP_ITS ---
Operative Note Operative Note Date of Service: 10/25/25 Narrative: Preop diagnosis: Intrinsic sphincter deficiency Postop diagnosis: Intrinsic sphincter deficiency Procedure: Cystoscopy urethral bulking with bulkamid system at the proximal urethra Surgeon: Dr. Julissa Rosa Details of procedure: The patient was brought into the operating room placed on the OR table in supine position IV sedation was administered. Antibiotics confirmed. The patient was placed in lithotomy position prepped and draped in the usual sterile fashion. Safety time-out was done. A 12 Moroccan straight catheter was used to send urine for culture. 2% lidocaine jelly was inserted transurethrally 10 mL. Using the 22 fr/11 cm cystoscope, 0 degree lens, and with the light cord in the 6 o'clock position, the bladder was filled with sterile water to 150 mL the bladder was visualized. With the sheath at the 5 o'clock position the needle was inserted to the 1 cm michelle and 0.5 mL of gel was injected there was good bulking noted. This was repeated on the 7 o'clock po sition. The 2nd needle was inserted into the sheath and an injection was done at the 2 o'clock position and again at the 11 o'clock position. There was bulking of the mucosa noted with good coaptation. Using the 12 fr catheter, 100 mL of water was drained from the bladder. The patient tolerated the procedure and was taken to recovery in stable condition. Complication: none EBL: minimal (<5 mL) Drains: none
== END 2025-10-25 12:38 | disposition home or self-care (01) ==
PROVIDERS: PCP Internal Medicine; Visit Provider Urology
PROC: 0TJB8ZZ Inspection of Bladder, Via Natural or Artificial Opening Endoscopic (ICD-10-PCS; CPT 52000; principal; 2025-10-25 10:10)
DX: N39.3 Stress incontinence (female) (male) (principal); N36.42 Intrinsic sphincter deficiency (ISD); N39.41 Urge incontinence; N32.81 Overactive bladder; Z79.899 Other long term (current) drug therapy
CPT/HCPCS: 51715; 87086; J0690; J1171; J2003; J2704; J3010; L8606

== ENCOUNTER → 2025-10-25 08:22 | Outpatient (BNV) | payer OTHER, SELFPAY | PROVIDERS: PCP Internal Medicine; Visit Provider Urology | DX: N36.42 Intrinsic sphincter deficiency (ISD) (principal) | CPT/HCPCS: 51715 ==

== ENCOUNTER → 2025-10-27 11:31 | Outpatient (BNVA) | payer OTHER, SELFPAY | PROVIDERS: PCP Internal Medicine; Visit Provider Urology | DX: N39.3 Stress incontinence (female) (male) (principal) | CPT/HCPCS: 51798 ==